=== PATIENT | female | born 1965 | race Caucasian/White ===

== ENCOUNTER 2023-04-11 17:52 | Inpatient (IN) | payer MEDICARE, OTHER, SELFPAY ==
[2023-04-11] VITALS (8 sets, daily range): BP systolic 90–170; BP diastolic 58–97; BMI 35.1; BMI 33.9
--- NOTE | 2023-04-11 14:05 | ED.GENMED ---
History of Present Illness
General
Chief Complaint: Change in Mental Status
Source: other ([facility] RN)
Exam Limitations: clinical condition
Time Seen by Provider: 04/11/23 13:52
Travel History
Have you had any contact with someone who has COVID-19?: Unable to Answer
Do you have any symptoms of coronavirus? Fever > 100 degrees, chills, cough, shortness of breath, sore throat, loss of taste or smell, muscle aches, or headache?: Unable to Answer
History of Present Illness
History of Present Illness:
This is a 58-year-old female with a history of geriatric psych issues. Was at a facility until weeks ago. She has been at her baseline until sometime in the last 24 hours. Staff is unsure whether she was like this this morning or just noted this
afternoon. He said she has had some increased confusion. She is normally is alert will go to the dining room to eat. They are unsure if she is oriented however. But this lethargy and confusion are seen recurrently different than her baseline.
Patient is unable to add history. Her Klonopin has been decreased to eat recently. No new medications per the staff
Past History
Past History
ED Past Medical History: GERD, HTN, Hypercholesterolemia, Hypothyroidism and Psychiatric
Social History
Living: care home
Employment: Not employed
Review of Systems
Review of Systems
Unable to obtain full review of systems at this time due to: due to acuity
All Other Systems: Not applicable
Phy Exam
Physical Exam
Physical Exam:
GENERAL: Alert to first name only in no apparent distress, however lethargic mildly slurred speech.
EYE: Orbits slightly dilated left pupil.
NECK: Supple, no significant adenopathy.
ENT: Pharynx without erythema
CARDIAC: Regular rate and rhythm without any obvious murmurs.
LUNGS: Clear breath sounds,normal
ABDOMEN: Soft, without focal tenderness or distention. Elevated BMI
NEUROLOGICAL: Alert and oriented to first name only, grossly non-focal
SKIN: Warm and dry, ecchymosis below the left knee
MUSCULOSKELETAL: No edema,no deformity.Good color
PSYCH: Flat affect
Course
Orders/Labs/Results
Orders:
Orders
04/11/23 Lunch
NPO
Reason for opting out of Shipboard Intelligence Analyst order writing: Provider Decision
Allow oral meds: No
Allow clear liquids: No
NPO with Ice Chips: No
04/11/23 13:36
EKG [Electrocardiogram (*1)] Urgent
Reason for Study: Fatigue / Weakness
04/11/23 13:37
EKG- Treatment ONCE
04/11/23 13:58
CT Head W/o Iv Contrast Urgent
Comment:
Reason For Exam: Change in mental status
CXR2 [CR Chest - 2 Views ] Urgent
Comment:
Reason For Exam: Change in mental status/hypothermia
Pulse Ox/cont/shift [RESP] Stat
Quantity: 1
04/11/23 13:59
Electrocardiogram (*1) Stat
Reason for Study: Other
Other Reason for Exam: neuro symptoms
EKG- Treatment ONCE
04/11/23 14:02
COVID-19 Antigen Urgent
Source: Nasal Swab
Complete Blood Count/With Diff Urgent
Comprehensive Metabolic Panel Urgent
TSH Reflex To Free T4 Urgent
Urinalysis Reflex To Culture Urgent
Date Specimen was Collected: 04/11/23
Time Specimen was Collected: 13:39
Valproic Acid Level [Depakane] Urgent
Blood Culture Routine
MASHA Source: Blood/Venous
Specimen Description:
Date Specimen was Collected: 04/11/23
Time Specimen was Collected: 13:39
Influenza A+B Rapid Molecular Urgent
MASHA Source: Nasal Swab
Specimen Description:
04/11/23 14:11
Lactic Acid Q4H
Comment: CANCEL 2nd LACTIC ACID IF 1st LACTIC ACID IS LESS THAN 2
04/11/23 17:02
Admit/Transfer Patient As Directed
Co-Sign Provider:
Level of Care: Inpatient admission
Assign to:: Medical/Surgical
Physician / Group: Hospitalist
Diagnosis: change in mental status
Reason for Hospitalization: change in mental status, TME, sepsis
Expected length of stay greater than two midnights?: Yes
ELOS- Estimated Length of Stay in days: 3
I certify the patient meets the requirements for IP care: Yes
Urine Drug Abuse Screen Urgent
04/11/23 17:04
Code Status As Directed
Resuscitation Status: Full Code
04/11/23 17:37
Add On- LAB Stat
Tests Added?: b12, folate
Abnormal Lab Results
04/11/23
14:02
MCV 80.9 L fL
(81.0-99.0)
Absolute Neuts (auto) 6.6 H 10^3/uL
(1.4-6.5)
Absolute Lymphs (auto) 0.9 L 10^3/uL
(1.2-3.4)
Neutrophils % 78.5 H %
(42.2-75.2)
Lymphocytes % 11.2 L %
(20.5-51.1)
Chloride 108 H mmol/L
(98-107)
BUN 22 H mg/dl
(7-17)
04/11/23 14:02
04/11/23 14:02
Vital Signs
Initial and Last Documented VS:
Initial Vital Signs
Temp Pulse Resp BP Pulse Ox
95.6 F L 69 22 136/79 100
04/11/23 13:40 04/11/23 13:40 04/11/23 13:40 04/11/23 13:40 04/11/23 13:40
Last Documented Vital Signs
Temp Pulse Resp BP Pulse Ox
95.6 F L 63 12 146/77 96
04/11/23 13:40 04/11/23 16:30 04/11/23 16:30 04/11/23 16:00 04/11/23 16:30
MDM/Problems Addressed
Differential Diagnosis Includes:
Large differential for mental status change including sepsis, thyroid, electrolyte, medications, central neurologic etc. Workup in progress.
*Radiology
Radiology exam reviewed: preliminary read by ED provider (Negative x-ray) and radiology read reviewed (Negative. CT scan brain with asymmetrical CSF.)
*Pulse Oximetry
Patient hypoxic: no
*EKG
Interpreted by ED Provider?: Yes
Interpretation: normal
Comparison EKG: no comparison EKG present
Heart Rate: 65
Rate: normal
Rhythm: sinus
Sandoval: normal axis
Interval: normal interval
QRS Pattern: normal QRS
Ischemia: no ischemia
*Activities Officer Interpretation
Rate: normal
Interpretation: normal
Heart Rate: 80
Rhythm: sinus
*Critical Care Note
Total Time (30-74mins, 75-104mins- exclusive of procedures): Not Applicable
Data Reviewed
Review of Other/Old Records Reveals: Other (ED records)
Update Note
Update Note:
Mental status changes most likely medication related at this time. No findings to support infectious issue. Doubt central neurologic issue. Warrants admission for further care. Family updated.
ED Attending Note
-
Portions of this chart may have been created with voice recognition software.� Occasional wrong word or��sound alike� substitutions may have occurred due to the inherent limitations of voice recognition software.
Discharge Plan
Departure
Patient Disposition: Admit
Date of Disposition: 04/11/23
Time of Disposition: 16:29
Presentation/result/management discussed w/ accepting MD/DO: Hospitalist
Discharge Problem:
Change in mental status, Suspect medication related
Prescriptions:
No Action
acetaminophen [Tylenol] 325 mg Tablet
650 mg PO Q6HPRN PRN (Reason: MILD PAIN)
trazodone 50 mg Tablet
50 mg PO HS
atorvastatin [Lipitor] 10 mg Tablet
10 mg PO DAILY
sennosides-docusate sodium [Senna Plus] 8.6-50 mg Tablet
2 tab-cap PO BID
clonazepam 1 mg Tablet
0.5 mg PO BID
melatonin 3 mg Tablet
3 mg PO HS
amlodipine [Norvasc] 10 mg Tablet
10 mg PO DAILY
levothyroxine [Synthroid] 50 mcg Tablet
50 mcg PO DAILY
bisacodyl [Dulcolax (bisacodyl)] 10 mg Suppository
10 mg ID DAILYPRN PRN (Reason: IF NO BM AFTR MOM)
pantoprazole 40 mg Tablet,Delayed Release (Dr/Ec)
40 mg PO DAILY
benztropine 1 mg Tablet
1 mg PO BID
Fleet Enema 19-7 gram/118 mL Enema
118 ml ID DAILYPRN PRN (Reason: IF NO BM AFTR DULCOLAX)
gabapentin 300 mg Capsule
300 mg PO TID
folic acid 1 mg Tablet
1 mg PO DAILY
furosemide 20 mg Tablet
20 mg PO DAILYPRN PRN (Reason: edema)
cholecalciferol (vitamin D3) [Vitamin D3] 10 mcg (400 unit) Tablet
10 mcg PO DAILY
diclofenac sodium [Voltaren] 1 % Gel
0 g TOPICAL Q8HPRN PRN (Reason: FRONT AND BACK OF SHOULDERS)
divalproex 250 mg Tablet,Delayed Release (Dr/Ec)
1,250 mg PO HS
magnesium hydroxide [Milk of Magnesia] 400 mg/5 mL Suspension
2,400 mg PO [id number] PRN (Reason: if no bm by 3rd day)
hydrocortisone 1 % Cream
1 applic TOPICAL BID
metoprolol tartrate [Lopressor] 50 mg Tablet
50 mg PO BID
docusate sodium [Colace] 100 mg Capsule
200 mg PO DAILY
losartan 100 mg Tablet
100 mg PO DAILY
risperidone 0.5 mg Tablet
0.5 mg PO HS
cyclobenzaprine [Flexeril] 5 mg Tablet
5 mg PO Q8HPRN PRN (Reason: spasms)
bupropion HCl [Wellbutrin XL] 300 mg Tablet Extended Release 24 Hr
300 mg PO DAILY
Referrals:
NONE,* [Family Provider] -
Interventions
Interventions:
*Risk Screen - Suicide Last Done: 04/11/23 13:47
*General Assessment Last Done: 04/11/23 14:44
*Neglect/Abuse Screening Last Done: 04/11/23 13:47
ED- Fall Risk Assessment Last Done: 04/11/23 13:47
*ED COVID-19 Vaccine History Last Done: 04/11/23 14:48
ED- Neurological Assessment Last Done: 04/11/23 14:43
ED Swallowing Screen Last Done: 04/11/23 14:42
[2023-04-11 14:21] LABS: % Basophils 0.7 % (0-2); % Eosinophils 1.7 % (0-6); % Immature Granulocytes 0.4 % (0-0.5); % Lymphocytes 11.2 % (20.5-51.1); % Monocytes 7.5 % (1.7-9.3); % Neutrophils 78.5 % (42.2-75.2); Absolute Basophils 0.1 10^3/uL (0-0.2); Absolute Eosinophils 0.1 10^3/uL (0-0.7); Absolute Lymphocytes 0.9 10^3/uL (1.2-3.4); Absolute Monocytes 0.6 10^3/uL (0.1-0.6); Absolute Neutrophils 6.6 10^3/uL (1.4-6.5); Hematocrit 41.4 % (37.0-47.0); Hemoglobin 14.2 g/dL (12.0-16.0); Mean Corp Hgb Conc. 34.3 g/dL (33.0-37.0); Mean Corpuscular Hgb 27.7 pg (27.0-31.0); Mean Corpuscular Volume 80.9 fL (81.0-99.0); Mean Platelet Volume 8.9 fL (7.4-10.4); Nucleated Red Blood Cells % 0 %; Platelet Count 171 10^3/uL (130-400); Red Blood Cell Count 5.12 10^6/uL (4.20-5.40); Red Cell Dist. Width 13.8 % (11.5-14.5); White Blood Cell Count 8.4 10^3/uL (4.8-10.8)
[2023-04-11 14:23] LABS: Urine Albumin Trace (Neg - Trace); Urine Bilirubin Negative (Negative); Urine Character Clear (Clear); Urine Color Yellow; Urine Glucose Negative (Negative); Urine Ketone Negative (Negative); Urine Leukocyte Negative (Negative); Urine Nitrite Negative (Negative); Urine Occult Blood Negative (Negative); Urine Specific Gravity 1.015 (<1.030); Urine Urobilinogen Negative (Neg - 1+)
[2023-04-11 14:32] LABS: COVID-19 Antigen Negative (Negative)
[2023-04-11 14:33] LABS: Lactic Acid 1.5 mmol/L (0.7-2.0)
[2023-04-11 14:34] LABS: ALT (SGPT) 11 U/L (0-35); AST (SGOT) 19 U/L (14-36); Albumin 3.9 g/dl (3.5-5.0); Alkaline Phosphatase 85 U/L (38-126); Blood Urea Nitrogen 22 mg/dl (7-17); Calcium 9.5 mg/dl (8.4-10.2); Carbon Dioxide 27 mmol/L (22-30); Chloride 108 mmol/L (98-107); Estimated Creatinine Clearance 71 ml/min; Glucose 98 mg/dl (70-99); Potassium 4.5 mmol/L (3.5-5.1); Sodium 139 mmol/L (135-145); Total Bilirubin 0.6 mg/dl (0.2-1.3); Total Protein 6.8 g/dl (6.3-8.2); eGFR > 60.00
[2023-04-11 14:38] LABS: Depakane 85.8 ug/ml (50.0-120.0)
[2023-04-11 15:14] LABS: TSH Reflex To Free T4 3.14 uIU/ml (0.47-4.68)
--- NOTE | 2023-04-11 17:17 | HPS.HSE ---
Addendum entered and electronically signed by Demario Martinez MD 04/11/23 17:53:
discussed with pt's sister, Elana at bedside H#[phone]
Addendum entered and electronically signed by Demario Martinez MD 04/11/23 17:52:
Pt had been at a senior care, but is currently living at [facility]
Noted change in mental status today. No known trauma
Pt seen independently and agree with HYDRO ELECTRIC STATION OPERATOR note
Neck supple, no nuchal rigidity
Lungs clear
CV reg
Ext no edema
Neuro arousable, impaired communicative ability
Imp: etio of change in mental status unclear.
P:Psych and Neuro consults
hold Psych meds
Original Note:
Family Physician
-
Family Physician: * NONE
Chief Complaint
-
change in mental status
History of Present Illness
58-year-old female with a history of schizophrenia presents to the emergency department today with change in mental status.� She was at a facility until recently.� She had been at her baseline until sometime in the last 24 hours.�She is normally
alert and independent with ADLs.� Sister, Elana says that she is healthy with no other medical or surgical history but yesterday was notified that she is currently in a wheelchair. Elana also states that the patient reportedly fell a week ago but
does not know if she hit her head. She is on no new medications per the staff.
Medical History
Past Medical History
Past Medical History: Reports Psychiatric (schizophrenia)
Past Surgical History: Reports None
Social History
Tobacco: Non-smoker
Personal: Single
Employment: Disabled
Family History
Family History: Not pertinent
Allergies / Home Medications
Allergies reflects when Allergies were last updated in [facility].
Home Medications with original date entered in [facility]
Allergy/Medication List:
Allergies
Allergy/AdvReac Type Severity Reaction Status Date / Time
codeine Allergy Unknown Verified 04/11/23 13:46
erythromycin base Allergy Unknown Verified 04/11/23 13:46
haloperidol [From Haldol] Allergy Unknown Verified 03/03/23 12:48
hydrocodone Allergy Unknown Verified 04/11/23 13:46
Iodinated Contrast Media Allergy Unknown Verified 04/11/23 13:46
iodine Allergy Unknown Verified 04/11/23 13:46
Macrolide Antibiotics Allergy Unknown Verified 04/11/23 13:46
Home Medications
acetaminophen 325 mg tablet (Tylenol) 650 mg PO Q6HPRN PRN MILD PAIN 03/03/23
amlodipine 10 mg tablet (Norvasc) 10 mg PO DAILY 03/03/23
atorvastatin 10 mg tablet (Lipitor) 10 mg PO DAILY 03/03/23
benztropine 1 mg tablet 1 mg PO BID 03/03/23
bisacodyl 10 mg rectal suppository (Dulcolax (bisacodyl)) 10 mg ID DAILYPRN PRN IF NO BM AFTR MOM 03/03/23
cholecalciferol (vitamin D3) 10 mcg (400 unit) tablet (Vitamin D3) 10 mcg PO DAILY 03/03/23
clonazepam 1 mg tablet 0.5 mg PO BID 03/03/23
diclofenac sodium 1 % topical gel 0 g topical Q8HPRN PRN FRONT AND BACK OF SHOULDERS 03/03/23
folic acid 1 mg tablet 1 mg PO DAILY 03/03/23
furosemide 20 mg tablet 20 mg PO DAILYPRN PRN edema 03/03/23
gabapentin 300 mg capsule 300 mg PO TID 03/03/23
levothyroxine 50 mcg tablet (Synthroid) 50 mcg PO DAILY 03/03/23
melatonin 3 mg tablet 3 mg PO HS 03/03/23
pantoprazole 40 mg tablet,delayed release 40 mg PO DAILY 03/03/23
sennosides 8.6 mg-docusate sodium 50 mg tablet (Senna Plus) 2 tab-cap PO BID 03/03/23
sodium phosphates 19 gram-7 gram/118 mL enema (Fleet Enema) 118 ml ID DAILYPRN PRN IF NO BM AFTR DULCOLAX 03/03/23
trazodone 50 mg tablet 50 mg PO HS 03/03/23
bupropion HCl 300 mg 24 hr tablet, extended release (Wellbutrin XL) 300 mg PO DAILY 04/11/23
cyclobenzaprine 5 mg tablet 5 mg PO Q8HPRN PRN spasms 04/11/23
divalproex 250 mg tablet,delayed release 1,250 mg PO HS 04/11/23
docusate sodium 100 mg capsule (Colace) 200 mg PO DAILY 04/11/23
hydrocortisone 1 % topical cream 1 applic topical BID behind right ear 04/11/23
losartan 100 mg tablet 100 mg PO DAILY 04/11/23
magnesium hydroxide 400 mg/5 mL oral suspension (Milk of Magnesia) 2,400 mg PO [id number] PRN if no bm by 3rd day 04/11/23
metoprolol tartrate 50 mg tablet (Lopressor) 50 mg PO BID 04/11/23
risperidone 0.5 mg tablet 0.5 mg PO HS 04/11/23
Review of Systems
-
Unable to obtain full review of systems at this time due to: Patient Non-verbal
Physical Exam
Vital Signs
Vital Signs
Temp Pulse Resp BP Pulse Ox
95.6 F L 63 12 146/77 96
04/11/23 13:40 04/11/23 16:30 04/11/23 16:30 04/11/23 16:00 04/11/23 16:30
Physical Exam
General: Well Developed and Obese
HEENT: NormoCephalic and Other (dry mucous membranes)
Respiratory: Clear
Cardiac: S1/S2 and Regular Rhythm
Breast: Deferred by me
GI: Soft, Non Tender, Non Distended and Normal Bowel Sounds
Rectal: Deferred by Provider
Genito-urinary: Deferred by me
Musculoskeletal: No Clubbing, No Cyanosis and No Edema
Skin: Warm and Dry
Neuro: Other (lethargic)
Hematologic/Lymphatic: No Lymphadenopathy
Laboratory Results
-
04/11/23 14:02
04/11/23 14:02
Laboratory Results
Lactic Acid Cancelled 04/11/23 18:15
Total Bilirubin 0.6 mg/dl (0.2-1.3) 04/11/23 14:02
AST 19 U/L (14-36) 04/11/23 14:02
ALT 11 U/L (0-35) 04/11/23 14:02
Alkaline Phosphatase 85 U/L (38-126) 04/11/23 14:02
Impression/Plan
-
IMPRESSION/PLAN:
Admit to Hospitalist service
#Acute change in mental status
-HCT Impression: Asymmetric prominent CSF fluid along the right frontal, parietal and occipital region laterally, asymmetric from the left. Findings most consistent with asymmetric volume loss, diffuse. No discrete mass identified.
-c/s Neurology
-c/s Psych
-NPO until more alert, S&S c/s
-IVF
-Urine drug screen pending
-Initial UA negative but with change in mental status and hypothermia will recheck UA in am
-Check B12, Folate
#Schizophrenia
-c/s Psych as above
-Hold all meds until mental status improves
Full Code
DVT Prophylaxis: Lovenox
[2023-04-11 18:38] LABS: Amphetamines Negative (Negative); Barbiturates Negative (Negative); Benzodiazepines Negative (Negative); Buprenorphine Negative (Negative); Cocaine Negative (Negative); Marijuana Negative (Negative); Methadone Negative (Negative); Methamphetamines Negative (Negative); Opiates Negative (Negative); Phencyclidine Negative (Negative); Tricyclic Antidepressants Negative (Negative)
[2023-04-11 20:03] LABS: Folate > 20.0 ng/ml (2.76-20); Vitamin B12 753 pg/ml (239-931)
[2023-04-11] MEDS: NSS 1000 IV (20:17)
[2023-04-11] MEDS: LOVENOX 40 MG SC (20:17)
[2023-04-11] MEDS: DESENEX/MITRAZOL/ZEASORB 1 APPLIC TOPICAL (20:23)
[2023-04-12 05:58] LABS: Urine Albumin Trace (Neg - Trace); Urine Bilirubin 1+ (Negative); Urine Character Clear (Clear); Urine Color Yellow; Urine Glucose Negative (Negative); Urine Ketone 1+ (Negative); Urine Leukocyte Trace (Negative); Urine Nitrite Negative (Negative); Urine Occult Blood Negative (Negative); Urine Urobilinogen Negative (Neg - 1+)
[2023-04-12 06:13] LABS: Urine Red Blood Cell None Seen /HPF (0-2)
[2023-04-12 07:43] VITALS: BP 177/98
[2023-04-12] MEDS: DESENEX/MITRAZOL/ZEASORB 1 APPLIC TOPICAL ×2 (07:53→21:55)
[2023-04-12] MEDS: NSS 1000 IV ×2 (08:03→21:58)
--- NOTE | 2023-04-12 09:33 | PTOTSP ---
SPEECH THERAPY SWALLOW EVALUATION:
Clinical signs of oropharyngeal dysphagia, likely acute related to AMS. Patient at high risk for aspiration and related complications given confusion, impusivity, and lethargy. CXR concerning for 'early pneumonic process' in Right lung base. Patient
appears unsafe for oral diet at this time. Recommend NPO except for necessary medications crushed in puree with 1:1 assist only when awake and alert; temporary alternate means for all other nutrition/hydration. Recommend Speech therapy to follow,
re-assess patient in 24 hours, and provide diagnostic treatment as appropriate. Discussed with patient, RN, and MD. Sign with recommendations posted in patient room.
RECOMMEND:
1) NPO except for necessary medications crushed in puree
2) temporary alternate means for all other nutrition/hydration
3) Speech therapy to follow, re-assess patient in 24 hours, and provide diagnostic treatment as appropriate
--- NOTE | 2023-04-12 09:46 | CON.NEURO4 ---
Consultation - Neurology 4
-
CONSULTING PHYSICIAN: Torrey
REFERRING PHYSICIAN: hospitalist service
DICTATED BY:Torrey
DATE/TIME OF REQUEST: 04/11/23 in evening
DATE/TIME OF CONSULTATION: 04/12/23 at 9am
Reason for Consultation:altered mental status
History of Present Illness:
58-year-old female with past medical history of hypertension, hypercholesterolemia, hypothyroidism, GERD and schizophrenia brought in from [facility] with altered mental status of unclear etiology. She had been at her baseline until sometime in the
previous 24 hours when she came in just prior to 2 PM yesterday. She has had increased confusion. Per records, the details of her baseline are unclear beyond that she is normally alert enough to go to the dining room to eat. Unclear if this
started yesterday morning or afternoon. No clear convulsive seizure activity noted. Reportedly her clonazepam had been decreased recently. No other new meds per [facility] staff per records.
Attempted to contact [facility] twice with no answer. Attempted to contact the patient's sister Lexis who is listed as her primary contact with no answer. Her voicemail box is full. I diid discuss with her sister Elana. ([phone])
She reports that Radha is usually oriented x 3 at baseline, 'very intelligent, has a good memory and likes to read.' She last saw her in person around [place] time and she was at her baseline and able to ambulate independently. She previously
lived in a [facility] on [facility] [address] [facility] [address] in [place]. Elana thinks that over the past several weeks she has been seen in different ERs including [facility] in [place], [place], a hospital in [place] and one in [place]. She
thinks that her meds have been adjusted at these different hospitals but does not know any further details. She did not know if her sister has an outpatient psychiatrist that she regularly follows with. She says that she fell on April 03 or .
Unclear if she had head trauma. She says that when her family calls [facility] they have difficulty getting through and she thinks that '[facility] took the patient's cell phone so they have been unable to call her. ' She has not spoken to her
since her fall.
Past Medical History
Taken from notes as patient could not provide own history:
'Past Medical History: schizophrenia, �GERD, HTN, Hypercholesterolemia, Hypothyroidism�
Past Surgical History: None
Social History
Tobacco: Non-smoker
Personal: Single
Employment: Disabled'
Family History
Family History:reviewed, noncontributory
Allergies
codeine Allergy (Verified 04/11/23 13:46)
Unknown
erythromycin base Allergy (Verified 04/11/23 13:46)
Unknown
haloperidol [From Haldol] Allergy (Verified 03/03/23 12:48)
Unknown
hydrocodone Allergy (Verified 04/11/23 13:46)
Unknown
Iodinated Contrast Media Allergy (Verified 04/11/23 13:46)
Unknown
iodine Allergy (Verified 04/11/23 13:46)
Unknown
Macrolide Antibiotics Allergy (Verified 04/11/23 13:46)
Unknown
Home Medications
Medication Instructions Recorded
acetaminophen 325 mg tablet 650 mg PO Q6HPRN PRN MILD PAIN 03/03/23
(Tylenol)
amlodipine 10 mg tablet (Norvasc) 10 mg PO DAILY Blood Pressure 03/03/23
atorvastatin 10 mg tablet (Lipitor) 10 mg PO DAILY High Cholesterol 03/03/23
benztropine 1 mg tablet 1 mg PO BID Neurological Condition 03/03/23
bisacodyl 10 mg rectal suppository 10 mg VT DAILYPRN PRN IF NO BM 03/03/23
(Dulcolax (bisacodyl)) AFTR MOM
cholecalciferol (vitamin D3) 10 10 mcg PO DAILY Supplement 03/03/23
mcg (400 unit) tablet (Vitamin D3)
clonazepam 1 mg tablet 0.5 mg PO BID Mental Health/Anxiety 03/03/23
diclofenac sodium 1 % topical gel 0 g topical Q8HPRN PRN FRONT AND 03/03/23
BACK OF SHOULDERS
folic acid 1 mg tablet 1 mg PO DAILY Supplement 03/03/23
furosemide 20 mg tablet 20 mg PO DAILYPRN PRN edema 03/03/23
gabapentin 300 mg capsule 300 mg PO TID Neurological 03/03/23
Condition
levothyroxine 50 mcg tablet 50 mcg PO DAILY@07 Thyroid 03/03/23
(Synthroid)
melatonin 3 mg tablet 3 mg PO HS Sleep 03/03/23
pantoprazole 40 mg tablet,delayed 40 mg PO DAILY Gastrointestinal 03/03/23
release Issue
sennosides 8.6 mg-docusate sodium 2 tab-cap PO BID Constipation 03/03/23
50 mg tablet (Senna Plus)
sodium phosphates 19 gram-7 118 ml VT DAILYPRN PRN IF NO BM 03/03/23
gram/118 mL enema (Fleet Enema) AFTR DULCOLAX
trazodone 50 mg tablet 50 mg PO HS Sleep 03/03/23
bupropion HCl 300 mg 24 hr tablet, 300 mg PO DAILY Depression 04/11/23
extended release (Wellbutrin XL)
cyclobenzaprine 5 mg tablet 5 mg PO Q8HPRN PRN spasms 04/11/23
divalproex 250 mg tablet,delayed 1,250 mg PO HS Neurological 04/11/23
release Condition
docusate sodium 100 mg capsule 200 mg PO DAILY Constipation 04/11/23
(Colace)
hydrocortisone 1 % topical cream 1 applic topical BID behind right 04/11/23
ear
losartan 100 mg tablet 100 mg PO DAILY Blood Clot 04/11/23
Prevention/Tx
magnesium hydroxide 400 mg/5 mL 2,400 mg PO [id number] PRN if no bm 04/11/23
oral suspension (Milk of Magnesia) by 3rd day
metoprolol tartrate 50 mg tablet 50 mg PO BID Blood Pressure 04/11/23
(Lopressor)
risperidone 0.5 mg tablet 0.5 mg PO HS Mental Health/Anxiety 04/11/23
Review of Symptoms:
Per the HPI. I am unable to obtain a complete review of systems�because of patient's inability to provide history.
Vital Signs
Temp Pulse Resp BP Pulse Ox
97.4 F 91 16 177/98 96
04/12/23 07:43 04/12/23 07:43 04/12/23 07:43 04/12/23 07:43 04/12/23 07:43
Lab Results
04/11/23 14:02
04/11/23 14:02
Sodium 139 mmol/L (135-145) 04/11/23 14:02
Potassium 4.5 mmol/L (3.5-5.1) 04/11/23 14:02
BUN 22 mg/dl (7-17) H 04/11/23 14:02
Glucose 98 mg/dl (70-99) 04/11/23 14:02
Calcium 9.5 mg/dl (8.4-10.2) 04/11/23 14:02
Vitamin B12 Cancelled 04/11/23 18:02
Ur Buprenorphine Cancelled 04/11/23 17:02
Physical Exam:
The patient is afebrile, heart sounds S1 and S2 are regular and chest is clear to auscultation bilaterally.
Neurologic Examination:
The patient is obtunded but did wake up enough to follow basic commands intermittently. She stated that 'she's okay' and repeated that when asked where she is that is 'is in maternity.' Answered no other questions. No clear aphasia. On cranial
nerve assessment, pupils are 3 mm bilateral, round and reactive to light and accommodation. Extraocular muscles seem to be intact. No clear visual field cut although exam could not be detailed given her mental status. No clear facial asymmetry.
BLE at least 4/5--did not follow command for BUE strength testing but exhibited antigravity spontaneous movement. Deep tendon reflexes are 2+ bilateral upper and lower extremities and Babinski is absent bilaterally. Did not follow commands for
coordination testing. +involuntary polymorphic, irregular movements of lower face/lips.
Neuro Imaging:
HCT:
1. � There is no acute intracranial process.
2. � Asymmetric prominent CSF fluid along the right frontal, parietal and occipital region laterally, asymmetric from the left. Findings most consistent with asymmetric volume loss, diffuse. No discrete mass identified.
3. � No hemorrhage.
Impression:
RADHA ANDRADE is a 58 year old F who has presented to the hospital with obtundation of unclear etiology. She has a history of schizophrenia; her baseline mental status is unclear. She had a fall one week ago--unclear if any head trauma. HCT
negative for bleed. On no new meds per staff at [facility] per notes. No clear history of stroke or seizure. HCT shows asymmetric volume loss. UDS negative. VPA level therapeutic at 85. ER notes report that clonazepam dosing was recently
decreased. Sister Elana reports she has had several recent ER visits at various hospitals and thinks meds have been adjusted.
Differentials for the patient's presentation include:
1. nonconvulsive seizure induced by clonazepam decrease
2. medication side effect (although per reports no recent med changes per [facility], sister Elana reports she has had several recent ER visits at various hospitals and thinks meds have been adjusted)
3. toxic-metabolic encephalopathy of unclear etiology--? infection, initially hypothermic but no leukocytosis, has not been febrile since admission; has had labile BP ranging from 90/68 to 177/98
Recommendations:
1. stat EEG
2. MRI brain w/wo contrast--can only be done with sedation given current inability to cooperate/remain still--not done on weekends; will try to get more history of sister Lexis to see if this is truly warranted
3. attempted to call [facility] to clarify her baseline/history and could not get through
4. called patient's primary contact, her sister Lexis; no answer, voicemail box was full so could not leave a message; did discuss with patient's sister Elana; asked Elana to have her sister Lexis call me back to discuss
5. repeat UA
6. need PCP/outpatient psych records/records from other hospitals where she has recently been seen
Discussed patient care with: patient, Dr. Martinez, nursing, MRI techs, nursing hand silvering supervisor, patient's sister Elana
--- NOTE | 2023-04-12 11:38 | W.PN.HOSP.TC ---
Today's Communication/Plan
-
reviewed with neurology
consideration for further imaging vs holding medication and reevaluate clinically, will be deferred to neuro
Assessment / Plan
Assessment / Plan
#Acute change in mental status
Reviewed extensively with Dr. Hirsch. Apparently pt has been in multiple institutions and now residing at [facility]. Family does not believe her current mental status is her normal status. They are concerned about excessive medication.
Medication currently on hold and she has certainly woken up, but again, as per nursing, can be very variable.
No evidence of meningitis on examination.
Dr. Hirsch is considering a MRI, but pt would have to be sedated to have that done. Also considering an EEG
-HCT Impression: Asymmetric prominent CSF fluid along the right frontal, parietal and occipital region laterally, asymmetric from the left. Findings most consistent with asymmetric volume loss, diffuse. No discrete mass identified.
-c/s Neurology
-c/s Psych
-NPO until more alert, S&S c/s
-IVF
-Urine drug screen pending
-Initial UA negative, repeat also neg
- B12 753, Folate >20
fungal looking rash behind both ears
will tx with Lotrimin
#Schizophrenia
-c/s Psych as above
-Hold all meds until mental status improves
Full Code
DVT Prophylaxis: Lovenox
Anticipated Discharge: > 48 hours
Subjective/Interval History
-
Date of Service: April 12, 2023
Much more awake today when seen by me, but as per nursing, can be very variable
Objective Data
-
Vital Signs:
Vital Signs
Temp Pulse Resp BP Pulse Ox
97.4 F 91 16 177/98 96
04/12/23 07:43 04/12/23 07:43 04/12/23 07:43 04/12/23 07:43 04/12/23 07:43
I&O
04/11/23 04/12/23 04/13/23
06:59 06:59 06:59
Output Total 1380 / 1380
Balance -1380 / -1380
Review of Systems
-
Constitutional: Denies Fever (hypothermia resolved today)
Respiratory: Reports No Symptoms
Cardiac: Reports No Symptoms
Abdomen/GI: Reports No Symptoms
Neuro: Denies Seizures
Physical Exam
-
General: Well Developed, Well Nourished, No Apparent Distress, Appears Chronically Ill and Obese
HEENT: Normocephalic, Atraumatic, Moist Mucous Membranes and Other (no nuchal rigidity)
Respiratory: Clear to Auscultation; Negative Wheezes, Rales or Rhonchi
Cardiac: Regular Rhythm and S1/S2
GI: Soft, Nontender and Nondistended
Musculoskeletal: No Clubbing, No Cyanosis and No Edema
Skin: Rash (fungal rash behind both ears)
Neuro: Awake (currently, but very variable)
Psych: Confused
[2023-04-12] MEDS: LOTRIMIN 1% CREAM 1 APPLIC TOPICAL ×2 (12:10→21:57)
--- NOTE | 2023-04-12 13:19 | EEG.RPT ---
Electroencephalogram Report
Recording
Date of EE04/12/23
Type of EEG: Routine
Length of EEG recordin mins
Done with Video Recording: Yes
Patient Status: Inpatient
Recording Conditions: Confused
Hyperventilation Performed: No
Photic Stimulation Performed: Yes
Report
METHODS
A 21 channel digitized electroencephalogram was performed at [facility]. The 10/20 international system of electrode placement was used. In addition to EEG, the patient was monitored for EKG. The duration of the recording was 25 minutes.
BACKGROUND
The background was diffusely slow, consisting of 5-6Hz frequencies. The background was at times obscured by severe movement and muscle artifact. Chewing movements had no clear epileptiform correlate.
HYPERVENTILATION
Hyperventilation was not performed.
PHOTIC STIMULATION
Photic stimulation using a step-ariza increase in photic frequency varying from 1-31 Hertz resulted in no driving responses but no appearance of abnormal activity.
ABNORMAL EEG ACTIVITY
This EEG is abnormal due to the presence of diffuse slowing of the background consisting of 5-6Hz frequencies. The background was at times obscured by severe movement and muscle artifact. Chewing movements had no clear epileptiform correlate.
CLINICAL EVENTS
Chewing movements had no clear epileptiform correlate.
INTERPRETATION AND CLINICAL CORRELATION
This EEG is abnormal due to the presence of diffuse slowing of the background consisting of theta-range frequencies. The background was at times obscured by severe movement and muscle artifact during which time underlying epileptiform abnormalities
cannot be definitively ruled out. Chewing movements had no clear epileptiform correlate. Overall, the study is consistent with mild to moderate diffuse cerebral dysfunction, nonspecific in etiology.
[2023-04-12 16:05] VITALS: BP 174/84
[2023-04-12 17:20] VITALS: BP 112/67
[2023-04-12] MEDS: LOVENOX 40 MG SC (17:35)
[2023-04-12 17:43] LABS: Ammonia < 9 umol/L (9-30)
[2023-04-12 17:50] LABS: Creatine Phosphokinase 25 U/L (30-135)
--- NOTE | 2023-04-12 18:33 | CON.MD ---
Consultation - Medical
-
58 yo F w/ PMH of schizophrenia presenting with change in mentation. As per family, she is normally able to converse appropriately & care for her basic ADLs , however is now confused and disoriented. Sister reportedly believes that pt fell about a
week ago but is not sure if she hit her head or not. On admission psychiatric medications were stopped due to concern they may be contributing to this change, psychiatry consulted for management of medication as pt has been intermittently quite
excitable & difficult to redirect.
Pt seen & examined at bedside, is unable to participate in meaningful interview � answers are nonsensical with significant word salad at times. Observed to be talking to self much of the time, or talking to someone off to the side (where no one was
standing). Notable for TD, specifically lip smacking and pill rolling. Difficult to assess for rigidity due to resistance to exam/interview as I don�t believe she understood who I was or why I was there, however VS stable.
Pt with long hx of schizophrenia. Psychotropics on admission as follows:
Clonazepam 0.5mg BID
Gabapentin 300mg TID
Melatonin 3mg HS
Trazodone 50mg HS
Bupropion HCL 300mg daily
Depakote DR 1250mg HS
Risperidone 0.5mg HS
CT head shows asymmetric volume loss, diffuse with no evidence of mass or acute injury, being followed by neurology for further evaluation.
Schizophrenia
MSE: poor eye contact, speech is garbled. Mood unable to assess as not answering meaningfully, affect labile. Thought content positive for AH, possibly VH & delusions but unable to confirm. Thought process loose/disjointed. Memory not formally
tested. Not oriented. Poor insight/judgement.
1.������ Resume risperidone 0.5mg HS + 0.25mg prn acute agitation as this may increase with Depakote being stopped. Low dose of risperidone, so I�m not sure how well it truly managed psychotic sxs, however current presentation is likely more so
delirium than her baseline psychosis. I do doubt that this is being caused by the psychiatric medications (aside from clonazepam perhaps contributing, but still not likely the sole cause)
2.������ Resume trazodone 50mg HS so as to maintain sleep
3.������ Ordered VPA level, would want to ensure not supratherapeutic and contributing to presentation. If appropriate level would likely consider restarting, though perhaps at a lower dose until cause of current presentation is determined
4.������ Would keep Wellbutrin on hold for now, as may be too activating right now
5.������ Would avoid restarting clonazepam if at all possible due to risk of falls, confusion and earlier/worsened dementia and associated sxs
6.������ Defer gabapentin for now as I�m unclear as to the reason it�s there � if for pain, I doubt that 300mg would be of much benefit regardless as generally higher doses are needed for any significant pain benefit
[2023-04-12 21:00] VITALS: BP 181/98
[2023-04-12] MEDS: DESYREL PO (21:16)
[2023-04-12] MEDS: RISPERDAL M-TAB (ORALLY DISINTEGRATING) 0.5 MG PO (21:57)
[2023-04-12 23:20] VITALS: BP 175/94
--- NOTE | 2023-04-13 02:32 | W.PN.UPDATE ---
Update Note
Progress Note Update
At 2100 RN notified this CUE WORKER, that another RN heard bed alarm and noticed patient positioned on the left knee on the floor while trying to get up with Right leg holding the side rails. Denies if patient hit her head, Patient is confused baseline this
admission, answers questions selectively. Bruises noted on left knee, otherwise no other wounds or scrapes noted, stable VS. Med sitter in room.
--- NOTE | 2023-04-13 03:39 | PTCARENOTE ---
@2020; Bed alarm ringing.[facility]rentiss staff member calling for help.Found pt facing the bed,kneeling on left knee,standing on right foot while holding on to side rail with both hands.Pt was assisted to sitting position on floor by staff.Pt is confused
,disoriented x3 and unable to verbalize what happen. Pt was lifted up into bed by staff and security.Bruise,yellow/blue noted below left knee.Pt did not complain of pain.MARCUS Fraga notified and into see pt.Vital signs done.Med sitter placed in
room along with bed alarm for pt safety.Superviser notified by charge nurse.
[2023-04-13] MEDS: RISPERDAL M-TAB (ORALLY DISINTEGRATING) 0.25 MG PO ×2 (04:19→17:41)
[2023-04-13 07:00] VITALS: BP 151/94
[2023-04-13 09:21] LABS: Depakane 16.5 ug/ml (50.0-120.0)
[2023-04-13] MEDS: DESENEX/MITRAZOL/ZEASORB 1 APPLIC TOPICAL ×2 (11:42→20:07)
[2023-04-13] MEDS: LOTRIMIN 1% CREAM 1 APPLIC TOPICAL ×2 (11:43→20:07)
--- NOTE | 2023-04-13 12:16 | PTOTSP ---
SPEECH THERAPY SWALLOW FOLLOW UP:
Patient continues to present with clinical signs of oropharyngeal dysphagia. Patient remains at high risk for aspiration given significant confusion and waxing and waning lethargy. Recommend CAUTIOUS initiation of oral diet of IDDSI Levle 4 Puree
and thin liquids with strict aspiration precautions in place: 1:1 assistance/100% supervision, NO STRAW, small single sips/bites, slow rate of intake, only feed when awake/alert, upright positioning. Discontinue oral diet should patient demonstrate
signs of aspiration or a decline in mental status or respiratory status; LOW threshold to make NPO. Continue medications crushed in puree. Speech therapy to follow, re-assess patient in 24 hours, monitor CXR and labs, assess diet tolerance and
modify as appropriate, and provide continued diagnostic treatment as appropriate.
RECOMMEND:
1) CAUTIOUS initiation of oral diet of IDDSI Levle 4 Puree and thin liquids
2) strict aspiration precautions in place: 1:1 assistance/100% supervision, NO STRAW, small single sips/bites, slow rate of intake, only feed when awake/alert, upright postioning
3) Discontinue oral diet should patient demonstrate signs of aspiration or a decline in mental status or respiratory status; LOW threshold to make NPO
4) medications crushed in puree
5) Speech therapy to follow, re-assess patient in 24 hours, monitor CXR and labs, assess diet tolerance and modify as appropriate, and provide continued diagnostic treatment as appropriate
--- NOTE | 2023-04-13 12:52 | W.PN.HOSP.TC ---
Today's Communication/Plan
-
PT/OT
follow psych recs on med regimen
obtain records as able
Assessment / Plan
Assessment / Plan
Assessment:
Acute change in mental status
TME of unclear etiology vs psychosis from schizophrenia
- EEG unremarkable
- for MRI brain if able to tolerate
- no evidence of new meds or infection, no other obvious medical cause to explain
- hold Klonopin
- Neurology following.
- Psych following. Resumed patient back on Risperdal, Trazodone. VPA level is 16.5 (previously 80), consider resumption but defer to psych. Wellbutrin/Benztropine on hold. Attempt to obtain records from recent intake at [facility]
center.
- continue 1:1/sitter
Fungal looking rash behind both ears
- continue Lotrimin
Essential HTN
- continue Norvasc/Losartan/BB
Hypothyroidism
- continue Levothyroxine
DVT ppx: Lovenox
Code: Full
Anticipated Discharge: > 48 hours
Subjective/Interval History
-
Date of Service: April 13, 2023
more calm in later morning per nursing, no complaints
Objective Data
-
Vital Signs:
Vital Signs
Temp Pulse Resp BP Pulse Ox
97.5 F 96 18 151/94 97
04/13/23 07:00 04/13/23 07:00 04/13/23 07:00 04/13/23 07:00 04/13/23 07:00
I&O
04/12/23 04/13/23 04/14/23
06:59 06:59 06:59
Intake Total 960 / 960
Output Total 1380 / 1380 1175 / 1175
Balance -1380 / -1380 -215 / -215
Physical Exam
-
General: No Apparent Distress
HEENT: Normocephalic and Atraumatic
Respiratory: Negative Wheezes
Cardiac: Regular Rhythm and S1/S2
GI: Soft
Genito-urinary: No Costovertebral Tender
Musculoskeletal: No Edema
Neuro: AO x 3
Psych: Calm
Data Reviewed
-
Total Time Spent with Patient (in minutes): 45
Labs: Labs Reviewed by me
--- NOTE | 2023-04-13 14:22 | PTCARENOTE ---
Patient more alert, follows commands, answers questions appropriately. Patient ambulated to bathroom with assist x1. Patient was able to brush her teeth and wash herself with assistance. Patient sitting in chair with alarm, call burciaga in reach.
--- NOTE | 2023-04-13 14:38 | W.PN.UPDATE ---
Update Note
Progress Note Update
Pt seen, chart reviewed. Pt resting in bed, disheveled. Pt alert, partially cooperative, with limited answers, poor historian. After repeated questions, pt states Depakote was started for 'mood.' Pt mildly intermittently restless, no agitation
or aggression. Pt seems internally preoccupied, but shows no overt delusions or hallucinations. VPA level was 85.8 on 04/11, 16.5 yesterday 04/12.
Imp: Schizophrenia, by history.
change in mental status with lethargy, appears to be improving
Rec: Agree with resumption of Risperidone and Trazodone.
Will also resume Depakote at lower dose and change to ER form; will need repeat level after a few days
Will follow
[2023-04-13 15:00] VITALS: BP 171/100
--- NOTE | 2023-04-13 15:57 | W.PN.NEURO.1 ---
Today's Communication / Plan
-
.
Subjective/Objective
Subjective Data
Date of Service: April 13, 2023
24-hour events: Hypertensive up to 181/98, afebrile.
Labs: normal ammonia, CPK
CT head-right hemiatrophy
[facility] EEG(04/12/2023)-gen slowing, no epileptiform abnormalities
ROS: Unable due to encephalopathy
General: Intermittently agitated
Cardio: Regular rate and rhythm without murmur. Extremities are without cyanosis or edema.
Neuro:
Mental Status: Alert, attends to examiner, follows simple requests intermittently. Poor attention. Nonfluent. No hemineglect
Cranial Nerves: Bilateral exodeviation in primary gaze with horizontal extraocular movement intact. No clear visual field deficits of facial weakness. Hearing is preserved. Edentulous dysarthria.
Motor: All limbs antigravity spontaneously purposefully
Reflexes: Limited exam due to cooperation
Sensory: Unable due to poor attention
Coordination: Head, aminta-mandibular dyskinesia
Gait: deferred
Assessment and Plan:
I. Multifactorial encephalopathy
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
III. Tardive dyskinesia
-BP control
-Avoid dopamine blocking agents,
-consider starting valbenazine, deutetrabenazine, or tetrabenazine if Clonazepam is not beneficial for TD symptoms management
-will contact patient's family to obtain patient's cognitive baseline
I reviewed all radiology and labs along with past medical records pertinent to current medical problems.
Thank you for allowing us to participate in the care of this patient. We will continue to follow. Please do not hesitate to contact us with any questions or concerns.
Objective Data
Vital Signs
Temp Pulse Resp BP Pulse Ox
36.6 C 113 18 171/100 97
04/13/23 15:00 04/13/23 15:00 04/13/23 15:00 04/13/23 15:00 04/13/23 15:00
Lab Results
04/11/23 14:02
04/11/23 14:02
Sodium 139 mmol/L (135-145) 04/11/23 14:02
Potassium 4.5 mmol/L (3.5-5.1) 04/11/23 14:02
BUN 22 mg/dl (7-17) H 04/11/23 14:02
Glucose 98 mg/dl (70-99) 04/11/23 14:02
Calcium 9.5 mg/dl (8.4-10.2) 04/11/23 14:02
Vitamin B12 Cancelled 04/11/23 18:02
Ur Buprenorphine Cancelled 04/11/23 17:02
Patient Allergies
codeine Allergy (Verified 04/11/23 13:46)
Unknown
erythromycin base Allergy (Verified 04/11/23 13:46)
Unknown
haloperidol [From Haldol] Allergy (Verified 03/03/23 12:48)
Unknown
hydrocodone Allergy (Verified 04/11/23 13:46)
Unknown
Iodinated Contrast Media Allergy (Verified 04/11/23 13:46)
Unknown
iodine Allergy (Verified 04/11/23 13:46)
Unknown
Macrolide Antibiotics Allergy (Verified 04/11/23 13:46)
Unknown
Modified [place] Score (MRS)
-
MRS Score:
[2023-04-13] MEDS: LOVENOX 40 MG SC (16:48)
[2023-04-13] MEDS: DEPAKOTE ER (24 HR RELEASE) 1000 MG PO (21:14)
[2023-04-13] MEDS: DESYREL 50 MG PO (21:14)
[2023-04-13] MEDS: RISPERDAL M-TAB (ORALLY DISINTEGRATING) 0.5 MG PO (21:20)
[2023-04-13 23:19] VITALS: BP 167/95
--- NOTE | 2023-04-14 | PTCARENOTE ---
BP- 190/98, HR- 102. Asymptomatic. MARCUS Arevalo updated. See MAR for new orders
[2023-04-14] MEDS: LOPRESSOR 50 MG PO ×3 (00:17→22:55)
[2023-04-14 02:06] VITALS: BP 160/70
[2023-04-14] MEDS: RISPERDAL M-TAB (ORALLY DISINTEGRATING) 0.25 MG PO (04:55)
[2023-04-14 06:39] LABS: % Basophils 0.9 % (0-2); % Eosinophils 2.3 % (0-6); % Immature Granulocytes 0.2 % (0-0.5); % Lymphocytes 17.6 % (20.5-51.1); % Monocytes 14.1 % (1.7-9.3); % Neutrophils 64.9 % (42.2-75.2); Absolute Basophils 0.1 10^3/uL (0-0.2); Absolute Eosinophils 0.2 10^3/uL (0-0.7); Absolute Lymphocytes 1.2 10^3/uL (1.2-3.4); Absolute Monocytes 0.9 10^3/uL (0.1-0.6); Absolute Neutrophils 4.3 10^3/uL (1.4-6.5); Hemoglobin 12.1 g/dL (12.0-16.0); Mean Corp Hgb Conc. 33.6 g/dL (33.0-37.0); Mean Corpuscular Hgb 27.4 pg (27.0-31.0); Mean Corpuscular Volume 81.4 fL (81.0-99.0); Mean Platelet Volume 9.5 fL (7.4-10.4); Nucleated Red Blood Cells % 0 %; Platelet Count 141 10^3/uL (130-400); Red Blood Cell Count 4.42 10^6/uL (4.20-5.40); Red Cell Dist. Width 13.8 % (11.5-14.5); White Blood Cell Count 6.7 10^3/uL (4.8-10.8)
[2023-04-14 07:00] VITALS: BP 168/83
[2023-04-14 07:17] LABS: Blood Urea Nitrogen 14 mg/dl (7-17); Calcium 9.2 mg/dl (8.4-10.2); Carbon Dioxide 22 mmol/L (22-30); Chloride 108 mmol/L (98-107); Estimated Creatinine Clearance 87 ml/min; Glucose 100 mg/dl (70-99); Potassium 3.4 mmol/L (3.5-5.1); Sodium 139 mmol/L (135-145); eGFR > 60.00
--- NOTE | 2023-04-14 08:38 | W.PN.NEURO.1 ---
Today's Communication / Plan
-
.
Neuro Assessment/Plan
Assessment
HERBERT ANDRADE is a 58 year old F who has presented to the hospital with obtundation of unclear etiology.� She has a history of schizophrenia; her baseline mental status is unclear. She had a fall one week ago--unclear if any head trauma. HCT
negative for bleed.� On no new meds per staff at [facility] per notes.� No clear history of stroke or seizure.� HCT shows asymmetric volume loss.� UDS negative.� VPA level therapeutic at 85. ER notes report that clonazepam dosing was recently
decreased.� Sister Elana reports she has had several recent ER visits at various hospitals and thinks meds have been adjusted.
Spoke with [facility] staff today (04/14/23). When patient initially moved into [facility] she had agitated behavior, but this subsided and she was typically oriented x3, pleasant, and conversant. She ambulates independently but is an assist x1 with
self care, does not keep up with personal needs unless prompted/assisted. Since coming back from recent psych facility stay, they report she was acting very detached and was minimally conversant which is not like her, followed by her increased
confusion/agitation on 04/11/23.
Labs: normal ammonia, CPK
CT head-right hemiatrophy
Routine EEG(04/12/2023)-gen slowing, no epileptiform abnormalities
I.� Multifactorial encephalopathy
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
III.� Tardive dyskinesia
Plan
-Goal normotension.
-Avoid dopamine blocking agents.
-Consider starting�valbenazine, deutetrabenazine, or tetrabenazine if Clonazepam is not beneficial for TD symptoms management
-Patient unlikely to tolerate MRI brain imaging due to agitation.
-PT/OT/ST evaluations
-DVT prophylaxis
Subjective/Objective
Subjective Data
Date of Service: April 14, 2023
Patient hypertensive overnight 190/98. KAREN ROS due to encephalopathy. Follows some commands. Aware that it is snowing outside today, thinks she is at home but keeps scanning the room and saying things seem 'scary.'
Objective Data
Vital Signs
Temp Pulse Resp BP Pulse Ox
98.4 F 77 18 168/83 97
04/14/23 07:00 04/14/23 07:00 04/14/23 07:00 04/14/23 07:00 04/14/23 07:00
Lab Results
04/14/23 06:17
04/14/23 06:17
Sodium 139 mmol/L (135-145) 04/14/23 06:17
Potassium 3.4 mmol/L (3.5-5.1) L 04/14/23 06:17
BUN 14 mg/dl (7-17) 04/14/23 06:17
Glucose 100 mg/dl (70-99) H 04/14/23 06:17
Calcium 9.2 mg/dl (8.4-10.2) 04/14/23 06:17
Vitamin B12 Cancelled 04/11/23 18:02
Ur Buprenorphine Cancelled 04/11/23 17:02
Patient Allergies
codeine Allergy (Verified 04/11/23 13:46)
Unknown
erythromycin base Allergy (Verified 04/11/23 13:46)
Unknown
haloperidol [From Haldol] Allergy (Verified 03/03/23 12:48)
Unknown
hydrocodone Allergy (Verified 04/11/23 13:46)
Unknown
Iodinated Contrast Media Allergy (Verified 04/11/23 13:46)
Unknown
iodine Allergy (Verified 04/11/23 13:46)
Unknown
Macrolide Antibiotics Allergy (Verified 04/11/23 13:46)
Unknown
Review of Systems
-
Unable to obtain full review of systems at this time due to: Other (encephalopathy)
Physical Exam
-
General: No Apparent Distress
Eyes: No Ptosis and Other (left pupil 3 BR, right pupil 2 BR)
HEENT: Normocephalic and Atraumatic
Neck: Full Range of Motion
Respiratory: No Dyspnea
GI: Non-distended
Extremities: No Clubbing, No Cyanosis and No Edema
Psych: Confused
Extended Neurological Exam
Mood & Affect: Mood Unremarkable and Affect Unremarkable
Attention Span & Concentration: Awake, Alert, Interactive (very distractible) and Unable to Perform 2 Step Request
Memory: Reduced (Oriented to name only)
Tremor: Hand Tremor Absent; Negative Head Tremor Absent (+aminta-mandibular dyskinesia)
Speech: Quality Unremarkable, Quantity Unremarkable, Rate of Production Unremarkable and Other (unable to answer most questions)
Cranial Nerve II: Left Eye: Pupillary Reactivity Unremarkable and Unable to Assess Visual Schilling; Negative Pupillary Size Unremarkable (3)
Cranial Nerve II: Right Eye: Pupillary Reactivity Unremarkable and Unable to Assess Visual Schilling; Negative Pupillary Size Unremarkable (2)
Cranial Nerves III, IV, : Extraocular Movement: Extraocular Movement Full in all Directions
Cranial Nerve VII: Facial Symmetry: Normal Facial Symmetry
Cranial Nerve VIII: Hearing: Unremarkable Hearing to Normal Conversational Volume
Cranial Nerves IX, X: Palate Movement: Palate Elevation Symmetric
Cranial Nerve XI: Shoulder Shrug: Unremarkable
Cranial Nerve XII: Tongue Protusion: Midline and Other (no tongue laceration noted)
Muscle Strength, Overall: Spontaneously Moves
Muscle Bulk & Tone: Bulk Unremarkable and Tone Unremarkable
Pronator Drift: No Drift in Upper Extremities and No Drift in Lower Extremities
Deep Tendon Reflexes: Unremarkable Throughout
Cold Sensation: Unable to Assess
Vibration Sensation: Unable to Assess
Touch Sensation: Unable to Assess
Coordination: Unable to Assess
Babinski Sign: Absent Bilaterally
Gait & Station: Unable to Assess
Data Reviewed
-
CT Head: Report Reviewed and Image Reviewed
Labs: Report Reviewed
Reviewed with: Physician and Patient
Medications
-
Active Medications
Generic Name Dose Route Start Last Admin
Trade Name Freq PRN Reason Stop Dose Admin
Amlodipine Besylate 10 mg 04/14/23 08:00 04/14/23 09:01
Amlodipine 10 Mg Tablet PO 05/12/23 07:59 10 mg
DAILY ROSALINDA Administration
Clotrimazole 0 applic 04/12/23 12:00 04/14/23 09:02
Clotrimazole 1% (Cream) 30 Gram Tube TOPICAL 05/10/23 11:59 1 applic
BID ROSALINDA Administration
Divalproex Sodium 1,000 mg 04/13/23 22:00 04/13/23 21:14
Divalproex 500 Mg Extended Release (24 Hr) Tablet PO 05/11/23 21:59 1,000 mg
HS ROSALINDA Administration
Enoxaparin Sodium 40 mg 04/11/23 19:08 04/13/23 16:48
Enoxaparin Sodium 40 Mg/0.4 Ml Syringe SC 05/09/23 19:07 40 mg
QPM ROSALINDA Administration
Losartan Potassium 100 mg 04/14/23 08:00 04/14/23 09:04
Losartan 100 Mg Tablet PO 05/12/23 07:59 100 mg
DAILY ROSALINDA Administration
Metoprolol Tartrate 50 mg 04/13/23 23:45 04/14/23 09:00
Metoprolol 50 Mg Regular Release Tablet PO 05/11/23 23:44 50 mg
BID ROSALINDA Administration
Miconazole Nitrate 0 applic 04/11/23 21:00 04/14/23 09:01
Miconazole Powder Bottle TOPICAL 05/09/23 20:59 1 applic
BID ROSALINDA Administration
Risperidone 0.25 mg 04/12/23 18:29 04/14/23 04:55
Risperidone 0.5 Mg Orally Disintegrating Tablet PO 05/10/23 18:28 0.25 mg
Q8HPRN PRN Administration
agitation
Risperidone 0.5 mg 04/12/23 22:00 04/13/23 21:20
Risperidone 0.5 Mg Orally Disintegrating Tablet PO 05/10/23 21:59 0.5 mg
HS ROSALINDA Administration
Sodium Chloride 0 flush 04/11/23 20:00
Sodium Chloride 0.9% (Flush) Syringe IV 05/09/23 19:59
PER PROTOCOL ROSALINDA
Trazodone HCl 50 mg 04/12/23 22:00 04/13/23 21:14
Trazodone 50 Mg Tablet PO 05/10/23 21:59 50 mg
HS ROSALINDA Administration
Home Medications
Medication Instructions Recorded
acetaminophen 325 mg tablet 650 mg PO Q6HPRN PRN MILD PAIN 03/03/23
(Tylenol)
amlodipine 10 mg tablet (Norvasc) 10 mg PO DAILY Blood Pressure 03/03/23
atorvastatin 10 mg tablet (Lipitor) 10 mg PO DAILY High Cholesterol 03/03/23
benztropine 1 mg tablet 1 mg PO BID Neurological Condition 03/03/23
bisacodyl 10 mg rectal suppository 10 mg TX DAILYPRN PRN IF NO BM 03/03/23
(Dulcolax (bisacodyl)) AFTR MOM
cholecalciferol (vitamin D3) 10 10 mcg PO DAILY Supplement 03/03/23
mcg (400 unit) tablet (Vitamin D3)
clonazepam 1 mg tablet 0.5 mg PO BID Mental Health/Anxiety 03/03/23
diclofenac sodium 1 % topical gel 0 g topical Q8HPRN PRN FRONT AND 03/03/23
BACK OF SHOULDERS
folic acid 1 mg tablet 1 mg PO DAILY Supplement 03/03/23
furosemide 20 mg tablet 20 mg PO DAILYPRN PRN edema 03/03/23
gabapentin 300 mg capsule 300 mg PO TID Neurological 03/03/23
Condition
levothyroxine 50 mcg tablet 50 mcg PO DAILY@07 Thyroid 03/03/23
(Synthroid)
melatonin 3 mg tablet 3 mg PO HS Sleep 03/03/23
pantoprazole 40 mg tablet,delayed 40 mg PO DAILY Gastrointestinal 03/03/23
release Issue
sennosides 8.6 mg-docusate sodium 2 tab-cap PO BID Constipation 03/03/23
50 mg tablet (Senna Plus)
sodium phosphates 19 gram-7 118 ml TX DAILYPRN PRN IF NO BM 03/03/23
gram/118 mL enema (Fleet Enema) AFTR DULCOLAX
trazodone 50 mg tablet 50 mg PO HS Sleep 03/03/23
bupropion HCl 300 mg 24 hr tablet, 300 mg PO DAILY Depression 04/11/23
extended release (Wellbutrin XL)
cyclobenzaprine 5 mg tablet 5 mg PO Q8HPRN PRN spasms 04/11/23
divalproex 250 mg tablet,delayed 1,250 mg PO HS Neurological 04/11/23
release Condition
docusate sodium 100 mg capsule 200 mg PO DAILY Constipation 04/11/23
(Colace)
hydrocortisone 1 % topical cream 1 applic topical BID behind right 04/11/23
ear
losartan 100 mg tablet 100 mg PO DAILY Blood Clot 04/11/23
Prevention/Tx
magnesium hydroxide 400 mg/5 mL 2,400 mg PO [id number] PRN if no bm 04/11/23
oral suspension (Milk of Magnesia) by 3rd day
metoprolol tartrate 50 mg tablet 50 mg PO BID Blood Pressure 04/11/23
(Lopressor)
risperidone 0.5 mg tablet 0.5 mg PO HS Mental Health/Anxiety 04/11/23
[2023-04-14] MEDS: NORVASC 10 MG PO (09:01)
[2023-04-14] MEDS: DESENEX/MITRAZOL/ZEASORB 1 APPLIC TOPICAL ×2 (09:01→22:57)
[2023-04-14] MEDS: LOTRIMIN 1% CREAM 1 APPLIC TOPICAL ×2 (09:02→22:58)
[2023-04-14] MEDS: COZAAR 100 MG PO (09:04)
--- NOTE | 2023-04-14 15:16 | W.PN.HOSP.TC ---
Today's Communication/Plan
-
monitor BP with resumption of BP meds
Assessment / Plan
Assessment / Plan
Assessment:
Acute change in mental status
TME of unclear etiology vs psychosis from schizophrenia
- EEG unremarkable
- for MRI brain if able to tolerate
- no evidence of new meds or infection, no other obvious medical cause to explain
- hold Klonopin
- Neurology following; follow their recs
- Psych following. Resumed patient back on Risperdal, Trazodone. VPA level is 16.5 (previously 80), Depakote resumed by psych. Wellbutrin/Benztropine on hold. Attempt to obtain records from recent intake at [facility].
- continue 1:1/sitter
Fungal looking rash behind both ears
- continue Lotrimin
Essential HTN
- continue Norvasc/Losartan/BB - monitor BP
Hypothyroidism
- continue Levothyroxine
DVT ppx: Lovenox
Code: Full
Anticipated Discharge: 24 - 48 hours
Subjective/Interval History
-
Date of Service: April 14, 2023
hypertensive overnight
Objective Data
-
Labs:
Laboratory Results
04/14/23
06:17
WBC 6.7
Hgb 12.1
Hct 36.0 L
Plt Count 141
Sodium 139
Potassium 3.4 L
Chloride 108 H
Carbon Dioxide 22
BUN 14
Creatinine 0.8
Glucose 100 H
Calcium 9.2
Vital Signs:
Vital Signs
Temp Pulse Resp BP Pulse Ox
98.4 F 82 18 168/85 97
04/14/23 07:00 04/14/23 09:00 04/14/23 07:00 04/14/23 09:00 04/14/23 07:00
I&O
04/13/23 04/14/23 04/15/23
06:59 06:59 06:59
Intake Total 960 / 960 1090 / 1090
Output Total 1175 / 1175
Balance -215 / -215 1090 / 1090
Physical Exam
-
General: No Apparent Distress
HEENT: Normocephalic and Atraumatic
Respiratory: Negative Wheezes
Cardiac: Regular Rhythm and S1/S2
GI: Soft
Genito-urinary: No Costovertebral Tender
Musculoskeletal: No Edema
Neuro: AO x 3
Psych: Calm
Data Reviewed
-
Total Time Spent with Patient (in minutes): 47
Labs: Labs Reviewed by me
[2023-04-14 15:36] VITALS: BP 180/99
--- NOTE | 2023-04-14 16:50 | W.PN.UPDATE ---
Update Note
Progress Note Update
Pt seen, chart reviewed. Pt resting in bed, awake, makes eye contact, gives limited and disorganized answers. Slightly more alert/clearer than yesterday. Restarted on Depakote ER 1000 mg HS last night (previously on DR 1250 mg HS). Tolerating
resumption of Risperidone for Schizophrenia. Noted by Neurology to have TD with recommendation to avoid dopamine blocking agents.
Imp: Schizophrenia, by history, appears fairly stable, possibly close to baseline�mental state
� � � change in mental status with lethargy, appears to be improving
Rec:� Would continue Risperidone (rather than starting Clozaril or Seroquel- options with lower risk of TD), Trazodone, Depakote ER- will need repeat blood level after a few days. Medication for TD can be explored after discharge.
�� Will follow
--- NOTE | 2023-04-14 16:59 | CM ---
Reviewed chart, spoke with patient's sister to obtain information for assessment. Patient's sister appeared forgetful and CM had to redirect her. Per patient's sister, Patient was at [facility] it sounded like inpatient psych but they will not take
patient back. Patient's sister did not specify why. She fell at the snf and subsequently went to [facility]. Patient's sister stated that she does not want patient going back to [facility] and called the [facility] to do an investigation on them.
Patient's sister stated that she would like for patient to go to a SNF in the [facility] as that would be a lot closer to her.
Will research facilities in that area. Spoke with electrical assemblies supervisor who stated that if patient is unable to be transitioned to an NH out there she may have to return to [facility] and have them facilitate transfer. Patient will most likely be a level 2
admission due to psych hx.
Plan: Case management will continue to follow and assist with discharge planning. Back to SNF upon medical clearance.
[2023-04-14] MEDS: LOVENOX 40 MG SC (17:51)
[2023-04-14] MEDS: APRESOLINE 5 MG IV (18:47)
[2023-04-14] MEDS: DEPAKOTE ER (24 HR RELEASE) 1000 MG PO (22:54)
[2023-04-14] MEDS: DESYREL 50 MG PO (22:55)
[2023-04-14] MEDS: RISPERDAL M-TAB (ORALLY DISINTEGRATING) 0.5 MG PO (22:55)
[2023-04-14 23:05] VITALS: BP 183/93
[2023-04-15 06:26] VITALS: BP 187/110
[2023-04-15 06:28] LABS: % Basophils 1.4 % (0-2); % Eosinophils 4.1 % (0-6); % Immature Granulocytes 0.2 % (0-0.5); % Lymphocytes 34.8 % (20.5-51.1); % Monocytes 12.9 % (1.7-9.3); % Neutrophils 46.6 % (42.2-75.2); Absolute Basophils 0.1 10^3/uL (0-0.2); Absolute Eosinophils 0.2 10^3/uL (0-0.7); Absolute Lymphocytes 1.5 10^3/uL (1.2-3.4); Absolute Monocytes 0.6 10^3/uL (0.1-0.6); Absolute Neutrophils 2.1 10^3/uL (1.4-6.5); Hematocrit 41.9 % (37.0-47.0); Hemoglobin 14.1 g/dL (12.0-16.0); Mean Corp Hgb Conc. 33.7 g/dL (33.0-37.0); Mean Corpuscular Hgb 27.5 pg (27.0-31.0); Mean Corpuscular Volume 81.8 fL (81.0-99.0); Mean Platelet Volume 9.4 fL (7.4-10.4); Nucleated Red Blood Cells % 0 %; Platelet Count 175 10^3/uL (130-400); Red Blood Cell Count 5.12 10^6/uL (4.20-5.40); White Blood Cell Count 4.4 10^3/uL (4.8-10.8)
--- NOTE | 2023-04-15 06:30 | PTCARENOTE ---
@0630; Pt continues to need Med sitter for her impulse behavior with bed alarm.Pt oriented x1 to name only.Pt requires frequent verbal redirection and assistance to bathroom with staff and rolling walker.
[2023-04-15] MEDS: APRESOLINE 5 MG IV (06:34)
[2023-04-15] MEDS: FLUSH (NSS) 1 FLUSH IV (06:35)
[2023-04-15 07:00] VITALS: BP 161/80
[2023-04-15 07:30] LABS: Blood Urea Nitrogen 12 mg/dl (7-17); Calcium 9.6 mg/dl (8.4-10.2); Carbon Dioxide 21 mmol/L (22-30); Chloride 108 mmol/L (98-107); Estimated Creatinine Clearance 99 ml/min; Glucose 93 mg/dl (70-99); Potassium 3.8 mmol/L (3.5-5.1); Sodium 141 mmol/L (135-145); eGFR > 60.00
--- NOTE | 2023-04-15 10:00 | CM ---
Addendum entered by EDUARDO Parrish 04/15/23 16:31:
Received notification from attending that patient is now being recommended for Psych. Will work on Psych placement.
Original Note:
Spoke with CM supervisor enrobing regarding family not wanting patient to return to [facility]. As patient is limited as far as facilities secondary to her psych hx, plan should be for CM at [facility] to facilitate a transition to another accepting facility
closer to home upon her return. Will send out referrals in the [place] area however while patient is in acute care, if patient is medically stable prior to another accepting facility is found, patient will need to return back to [facility] as
that is where she has been since 02/05.
Spoke with Anette in admissions at [facility] who confirmed that patient came to her facility on 02/05 and prior to that was at [facility]. [facility] in [place] sent patient to [facility] and [facility] sent patient to [facility] for two weeks
throughout her admission there as she was exhibiting worrisome and problematic behaviors. Upon her return, she mentally was not at her baseline and therefore, they sent her to for further evaluation.
Attending requested CM attempt to obtain records from [facility]. Will call them this morning.
Anette stated that despite patient returning from [facility], she would still be a level 2 admission prior to returning to [facility]. Will call the [facility] to confirm that this is the case.
Plan: Case management will continue to follow and assist with discharge planning. Back to [facility] vrs. alternate SNF if one can accept patient prior to her being medically stable.
[2023-04-15] MEDS: NORVASC 10 MG PO (10:39)
[2023-04-15] MEDS: DESENEX/MITRAZOL/ZEASORB 1 APPLIC TOPICAL ×2 (10:40→20:23)
[2023-04-15] MEDS: LOPRESSOR 50 MG PO ×2 (10:40→20:24)
[2023-04-15] MEDS: COZAAR 100 MG PO (10:40)
[2023-04-15] MEDS: LOTRIMIN 1% CREAM 1 APPLIC TOPICAL ×2 (10:41→20:24)
--- NOTE | 2023-04-15 11:21 | W.PN.HOSP.TC ---
Today's Communication/Plan
-
med adjustments per psych with possible pursue IP psych
Assessment / Plan
Assessment / Plan
Assessment:
Acute change in mental status
TME of unclear etiology vs psychosis from schizophrenia
- EEG unremarkable
- for MRI brain if able to tolerate
- no evidence of new meds or infection, no other obvious medical cause to explain
- hold Klonopin
- Neurology following; follow their recs
- Psych following. Resumed patient back on Risperdal, Trazodone. VPA level is 16.5 (previously 80), Depakote resumed by psych. Wellbutrin/Benztropine on hold. Attempt to obtain records from recent intake at [facility] not
successful. Ideally patient could be on Clozaril and with IP psych placement, will d/w Psych and CM.
- continue 1:1/sitter
Fungal looking rash behind both ears
- continue Lotrimin
Essential HTN
- continue Norvasc/Losartan/BB - monitor BP
- prn Hydralazine available.
Hypothyroidism
- continue Levothyroxine
DVT ppx: Lovenox
Code: Full
Anticipated Discharge: 24 - 48 hours
Subjective/Interval History
-
Date of Service: April 15, 2023
remains with paranoia at times
Objective Data
-
Labs:
Laboratory Results
04/15/23
06:15
WBC 4.4 L
Hgb 14.1
Hct 41.9
Plt Count 175 D
Sodium 141
Potassium 3.8
Chloride 108 H
Carbon Dioxide 21 L
BUN 12
Creatinine 0.7
Glucose 93
Calcium 9.6
Vital Signs:
Vital Signs
Temp Pulse Resp BP Pulse Ox
98.1 F 68 18 161/80 99
04/15/23 07:00 04/15/23 07:00 04/15/23 07:00 04/15/23 07:00 04/15/23 07:00
I&O
04/14/23 04/15/23 04/16/23
06:59 06:59 06:59
Intake Total 1090 / 1090 520 / 520
Balance 1090 / 1090 520 / 520
Physical Exam
-
General: No Apparent Distress
HEENT: Normocephalic and Atraumatic
Respiratory: Negative Wheezes or Rales
Cardiac: Regular Rhythm and S1/S2
GI: Soft and Nontender
Genito-urinary: No Costovertebral Tender
Neuro: AO x 3
Psych: Calm
Data Reviewed
-
Total Time Spent with Patient (in minutes): 45
Labs: Labs Reviewed by me
[2023-04-15 12:00] VITALS: BP 172/95; PULSE 70; O2SAT 98
[2023-04-15 12:05] VITALS: BP 172/95; PULSE 70; O2SAT 98
--- NOTE | 2023-04-15 14:33 | W.PN.UPDATE ---
Update Note
Progress Note Update
patient seen chart reviewed. spoke with nursing and with dr bunch. attempted to talk to patient but even when i asked innocuous questions she responded in a very paranoid manner. in fact in about 15 minutes she went from calm to loud verbalizing
'They are doing testing on me....' clearly with the belief that someone is experimenting on her. she is psychotic at this point. she also has tardive dyskinesia with movements that are not limited to her facial muscles. she is taking depakote and
risperdal but the dose of risperdal is minimal. i will increase to bid however keno terminal operator she would be better servied by clozaril which does not cause tardive dyskinesia. i would suggest considering a psychiatric hospital to make the transition from
risperdal to clozaril. another issue however vis a vis clozaril is ecg read as prolonged qtc. re tardive dyskinesia she might also benefit from ingrezza but not formulary here.
[2023-04-15 15:00] VITALS: BP 120/67
[2023-04-15] MEDS: LOVENOX 40 MG SC (17:49)
[2023-04-15] MEDS: RISPERDAL M-TAB (ORALLY DISINTEGRATING) 0.5 MG PO (20:24)
[2023-04-15] MEDS: TYLENOL 650 MG PO (21:58)
[2023-04-15] MEDS: DESYREL 50 MG PO (21:58)
[2023-04-15] MEDS: DEPAKOTE ER (24 HR RELEASE) 1000 MG PO (21:58)
--- NOTE | 2023-04-15 22:00 | PTCARENOTE ---
Pt complained of mild pain throughout her lower middle abd. Pt stated, 'It feels like my bladder hurts'. ELECTRICAL INTERN made aware, new order provided, see MAR. Will continue to monitor.
[2023-04-15 23:00] VITALS: BP 131/61
--- NOTE | 2023-04-16 01:32 | W.PN.UPDATE ---
Update Note
Progress Note Update
RN notified HIDE WASHER patient c/o pain at the bladder site, voided, urine looked cloudy, last Urine negative. Advised RN to collect to urine sample and to bladder scan post void once. Denies any other symptoms.
[2023-04-16 06:24] LABS: % Basophils 1.2 % (0-2); % Eosinophils 3.2 % (0-6); % Immature Granulocytes 0.4 % (0-0.5); % Monocytes 12.3 % (1.7-9.3); % Neutrophils 53.9 % (42.2-75.2); Absolute Basophils 0.1 10^3/uL (0-0.2); Absolute Eosinophils 0.2 10^3/uL (0-0.7); Absolute Lymphocytes 1.6 10^3/uL (1.2-3.4); Absolute Monocytes 0.7 10^3/uL (0.1-0.6); Hematocrit 37.7 % (37.0-47.0); Hemoglobin 12.7 g/dL (12.0-16.0); Mean Corp Hgb Conc. 33.7 g/dL (33.0-37.0); Mean Corpuscular Hgb 27.7 pg (27.0-31.0); Mean Corpuscular Volume 82.3 fL (81.0-99.0); Mean Platelet Volume 9.4 fL (7.4-10.4); Nucleated Red Blood Cells % 0 %; Platelet Count 178 10^3/uL (130-400); Red Blood Cell Count 4.58 10^6/uL (4.20-5.40); Red Cell Dist. Width 14.3 % (11.5-14.5); White Blood Cell Count 5.6 10^3/uL (4.8-10.8)
[2023-04-16 07:00] VITALS: BP 150/74
[2023-04-16 07:07] LABS: Blood Urea Nitrogen 17 mg/dl (7-17); Calcium 9.5 mg/dl (8.4-10.2); Carbon Dioxide 25 mmol/L (22-30); Chloride 107 mmol/L (98-107); Estimated Creatinine Clearance 77 ml/min; Glucose 97 mg/dl (70-99); Potassium 3.7 mmol/L (3.5-5.1); Sodium 141 mmol/L (135-145); eGFR > 60.00
[2023-04-16] MEDS: LOTRIMIN 1% CREAM 1 APPLIC TOPICAL ×2 (08:49→20:27)
[2023-04-16] MEDS: LOPRESSOR 50 MG PO (08:49)
[2023-04-16] MEDS: DESENEX/MITRAZOL/ZEASORB 1 APPLIC TOPICAL ×2 (08:49→20:26)
[2023-04-16] MEDS: NORVASC 10 MG PO (08:49)
[2023-04-16] MEDS: COZAAR 100 MG PO (08:49)
[2023-04-16] MEDS: RISPERDAL M-TAB (ORALLY DISINTEGRATING) 0.5 MG PO ×2 (08:49→20:26)
[2023-04-16 09:26] LABS: Urine Albumin 1+ (Neg - Trace); Urine Bilirubin 1+ (Negative); Urine Character Very Cloudy (Clear); Urine Color Yellow; Urine Glucose Negative (Negative); Urine Ketone Negative (Negative); Urine Leukocyte 2+ (Negative); Urine Nitrite Positive (Negative); Urine Occult Blood 3+ (Negative); Urine Urobilinogen 2+ (Neg - 1+)
[2023-04-16 10:21] LABS: Urine White Cell >100 /HPF (0-5)
--- NOTE | 2023-04-16 11:41 | W.PN.HOSP.TC ---
Today's Communication/Plan
-
UTI tx
increase BB
Assessment / Plan
Assessment / Plan
Assessment:
Acute change in mental status
TME of unclear etiology vs psychosis from schizophrenia
- EEG unremarkable
- for MRI brain if able to tolerate
- no evidence of new meds or infection, no other obvious medical cause to explain
- hold Klonopin
- Neurology following; follow their recs
- Psych following. Resumed patient back on Risperdal, Trazodone. VPA level is 16.5 (previously 80), Depakote resumed by psych. Wellbutrin/Benztropine on hold. Attempt to obtain records from recent intake at [facility] not
successful. Ideally patient could be on Clozaril and with IP psych placement, will d/w Psych and CM.
- continue 1:1/sitter
UTI
- start Rocephin, day 1 pending cultures
Fungal looking rash behind both ears
- continue Lotrimin
Essential HTN
- continue Norvasc/Losartan/BB - monitor BP
- prn Hydralazine available.
Hypothyroidism
- continue Levothyroxine
DVT ppx: Lovenox
Code: Full
Anticipated Discharge: > 48 hours
Subjective/Interval History
-
Date of Service: April 16, 2023
overnight with UTI sx, confirmed on UA And being treated
denies any complaints
Objective Data
-
Labs:
Laboratory Results
04/16/23
06:00
WBC 5.6
Hgb 12.7
Hct 37.7
Plt Count 178
Sodium 141
Potassium 3.7
Chloride 107
Carbon Dioxide 25
BUN 17
Creatinine 0.9
Glucose 97
Calcium 9.5
Vital Signs:
Vital Signs
Temp Pulse Resp BP Pulse Ox
98.3 F 68 18 150/74 95
04/16/23 07:00 04/16/23 07:00 04/16/23 07:00 04/16/23 07:00 04/16/23 07:00
I&O
04/15/23 04/16/23 04/17/23
06:59 06:59 06:59
Intake Total 520 / 520 840 / 840 100 / 100
Output Total 100 / 100
Balance 520 / 520 840 / 840 0 / 0
Physical Exam
-
General: No Apparent Distress
HEENT: Normocephalic and Atraumatic
Respiratory: Negative Wheezes or Rales
Cardiac: Regular Rhythm and S1/S2
GI: Soft
Genito-urinary: No Costovertebral Tender
Neuro: AO x 3
Data Reviewed
-
Total Time Spent with Patient (in minutes): 45
Labs: Labs Reviewed by me
--- NOTE | 2023-04-16 11:53 | W.PN.UPDATE ---
Update Note
Progress Note Update
patient seen chart reviewed. discussed w dr bunch. noted not movement on the issue of psych hosp. dr bunch spoke w ewa who is going to get on it. the patient seemed to me to be a bit better today. she did talk about her hx informing me she had lived
at [facility] for seven years and really missed that milieu. she had been living in a nh. she is still a bit confused...did not realize she was in a hospital . i did explain to her why she is here. for the moment will continue w current
medications. will follow
[2023-04-16] MEDS: ROCEPHIN 1000 MG IV (12:48)
[2023-04-16] MEDS: STERILE WATER FOR INJECTION 10 ML IV (12:49)
--- NOTE | 2023-04-16 13:32 | CM ---
Spoke with attending who stated that the indication is still for Geropysch for patient. Per attending patient's sister stated that patient has been to [place] in the past and she would like for her to return there. She wants to keep her in the
[place] area. Will make referrals once patient is medically stable.
Plan: Case management will continue to follow and assist with discharge planning. Hopeful Geropysch placement upon medical clearance.
[2023-04-16 15:00] VITALS: BP 156/92
[2023-04-16] MEDS: LOVENOX 40 MG SC (17:36)
[2023-04-16] MEDS: LOPRESSOR 75 MG PO (20:18)
[2023-04-16] MEDS: DESYREL 50 MG PO (21:30)
[2023-04-16] MEDS: DEPAKOTE ER (24 HR RELEASE) 1000 MG PO (21:30)
[2023-04-16 23:00] VITALS: BP 153/79
[2023-04-17 06:29] LABS: % Basophils 1.4 % (0-2); % Eosinophils 4.1 % (0-6); % Immature Granulocytes 0.4 % (0-0.5); % Monocytes 12.2 % (1.7-9.3); % Neutrophils 50.9 % (42.2-75.2); Absolute Basophils 0.1 10^3/uL (0-0.2); Absolute Eosinophils 0.2 10^3/uL (0-0.7); Absolute Lymphocytes 1.6 10^3/uL (1.2-3.4); Absolute Monocytes 0.6 10^3/uL (0.1-0.6); Absolute Neutrophils 2.6 10^3/uL (1.4-6.5); Hematocrit 38.6 % (37.0-47.0); Hemoglobin 13.2 g/dL (12.0-16.0); Mean Corp Hgb Conc. 34.2 g/dL (33.0-37.0); Mean Corpuscular Hgb 27.6 pg (27.0-31.0); Mean Corpuscular Volume 80.8 fL (81.0-99.0); Mean Platelet Volume 9.5 fL (7.4-10.4); Nucleated Red Blood Cells % 0 %; Platelet Count 203 10^3/uL (130-400); Red Blood Cell Count 4.78 10^6/uL (4.20-5.40); Red Cell Dist. Width 14.3 % (11.5-14.5); White Blood Cell Count 5.1 10^3/uL (4.8-10.8)
[2023-04-17 06:58] LABS: Blood Urea Nitrogen 20 mg/dl (7-17); Calcium 9.3 mg/dl (8.4-10.2); Carbon Dioxide 22 mmol/L (22-30); Chloride 110 mmol/L (98-107); Estimated Creatinine Clearance 87 ml/min; Glucose 90 mg/dl (70-99); Potassium 3.8 mmol/L (3.5-5.1); Sodium 139 mmol/L (135-145); eGFR > 60.00
[2023-04-17 07:00] VITALS: BP 176/92
[2023-04-17] MEDS: NORVASC 10 MG PO (07:40)
[2023-04-17] MEDS: LOPRESSOR 75 MG PO ×2 (07:40→20:21)
[2023-04-17] MEDS: RISPERDAL M-TAB (ORALLY DISINTEGRATING) 0.5 MG PO ×2 (07:40→20:21)
[2023-04-17] MEDS: COZAAR 100 MG PO (07:41)
[2023-04-17] MEDS: DESENEX/MITRAZOL/ZEASORB 1 APPLIC TOPICAL ×2 (07:44→20:35)
[2023-04-17] MEDS: LOTRIMIN 1% CREAM 1 APPLIC TOPICAL ×2 (07:45→20:36)
[2023-04-17 10:48] VITALS: BP 148/71
[2023-04-17] MEDS: ROCEPHIN 1000 MG IV (11:56)
[2023-04-17] MEDS: STERILE WATER FOR INJECTION 10 ML IV (11:56)
[2023-04-17 14:43] VITALS: BMI 33.9
[2023-04-17 15:00] VITALS: BP 168/91
--- NOTE | 2023-04-17 15:04 | W.PN.HOSP.TC ---
Today's Communication/Plan
-
continue UTI
awaiting IP Psych placement
Assessment / Plan
Assessment / Plan
Assessment:
Acute change in mental status
TME of unclear etiology vs psychosis from schizophrenia
- EEG unremarkable
- for MRI brain if able to tolerate
- no evidence of new meds or infection, no other obvious medical cause to explain
- hold Klonopin
- Neurology following; follow their recs
- Psych following. Resumed patient back on Risperdal, Trazodone. VPA level is 16.5 (previously 80), Depakote resumed by psych. Wellbutrin/Benztropine on hold. Attempt to obtain records from recent intake at [facility] not
successful. Ideally patient could be on Clozaril and with IP psych placement, will d/w Psych and CM.
- continue 1:1/sitter
E. Coli UTI
- continue Rocephin, day 2 pending cultures
Fungal looking rash behind both ears
- continue Lotrimin
Essential HTN
- continue Norvasc/Losartan/BB - monitor BP
- prn Hydralazine available.
Hypothyroidism
- continue Levothyroxine
DVT ppx: Lovenox
Code: Full
Anticipated Discharge: > 48 hours
Subjective/Interval History
-
Date of Service: April 17, 2023
no new complaints
did not sleep well overnight
Objective Data
-
Labs:
Laboratory Results
04/17/23
06:02
WBC 5.1
Hgb 13.2
Hct 38.6
Plt Count 203
Sodium 139
Potassium 3.8
Chloride 110 H
Carbon Dioxide 22
BUN 20 H
Creatinine 0.8
Glucose 90
Calcium 9.3
Vital Signs:
Vital Signs
Temp Pulse Resp BP Pulse Ox
98.3 F 71 18 148/71 98
04/17/23 07:00 04/17/23 10:48 04/17/23 07:00 04/17/23 10:48 04/17/23 07:00
I&O
04/16/23 04/17/23 04/18/23
06:59 06:59 06:59
Intake Total 840 / 840 440 / 440
Output Total 280 / 280
Balance 840 / 840 160 / 160
Physical Exam
-
General: No Apparent Distress
HEENT: Normocephalic and Atraumatic
Respiratory: Negative Wheezes or Rales
Cardiac: Regular Rhythm and S1/S2
GI: Soft
Genito-urinary: No Costovertebral Tender
Neuro: AO x 3
Hematologic / Lymphatic: No Lymphadenopathy
Psych: Calm
Data Reviewed
-
Total Time Spent with Patient (in minutes): 42
Labs: Labs Reviewed by me
--- NOTE | 2023-04-17 16:17 | CM ---
Reviewed chart, TT Dr. Reed to determine if patient needs to be a 201 prior to psych transfer. Will await response.
Plan: Case management will continue to follow and assist with discharge planning/transfer to psych upon medical clearance.
[2023-04-17] MEDS: LOVENOX 40 MG SC (17:12)
[2023-04-17] MEDS: APRESOLINE 5 MG IV (21:36)
[2023-04-17] MEDS: DESYREL 50 MG PO (21:57)
[2023-04-17] MEDS: DEPAKOTE ER (24 HR RELEASE) 1000 MG PO (21:57)
[2023-04-17 23:25] VITALS: BP 163/86
[2023-04-18] MEDS: APRESOLINE 5 MG IV (03:24)
[2023-04-18] MEDS: ATIVAN 0.5 MG IV (04:43)
[2023-04-18] MEDS: DUONEB 3 ML INH (05:01)
--- NOTE | 2023-04-18 05:17 | PTCARENOTE ---
Pt was able to sleep very briefly overnight. Pt was then heard screaming 'I can't breathe' and staff at bedside to assess patient. Pt noted to be tachy to 110s and O2 sats >97% on room air. Pt continues to scream 'I can't breathe' and placing arm
over chest. Pt agitated with staff. EKG performed. REINSURANCE CLAIMS ANALYST aware and at bedside to assess patient. IV ativan ordered and administered. Pt placed on 2L O2 for comfort. Respiratory at bedside to assess pt and administered neb. Pt responds well to
reassurance by staff. Pt calm at this time - HOB elevated, remains on 2L O2. Plan for portable chest xray.
[2023-04-18 07:11] VITALS: BP 150/85
[2023-04-18] MEDS: LOPRESSOR 75 MG PO (07:13)
[2023-04-18] MEDS: NORVASC 10 MG PO (07:13)
[2023-04-18] MEDS: COZAAR 100 MG PO (07:13)
[2023-04-18] MEDS: RISPERDAL M-TAB (ORALLY DISINTEGRATING) 0.5 MG PO ×2 (07:13→19:32)
[2023-04-18] MEDS: DESENEX/MITRAZOL/ZEASORB 1 APPLIC TOPICAL ×2 (07:14→19:33)
[2023-04-18] MEDS: LOTRIMIN 1% CREAM 1 APPLIC TOPICAL ×2 (07:15→19:33)
[2023-04-18 08:38] LABS: COVID-19 Antigen Negative (Negative)
--- NOTE | 2023-04-18 10:03 | W.PN.HOSP.TC ---
Today's Communication/Plan
-
increase BB dose
DC planning to IP Psych
Assessment / Plan
Assessment / Plan
Assessment:
Acute change in mental status
TME of unclear etiology vs psychosis from schizophrenia
- EEG unremarkable
- MRI brain not performed as pt unlikely to tolerate
- hold Klonopin
- Neurology following; follow their recs
- Psych following. Resumed patient back on Risperdal, Trazodone. VPA level is 16.5 (previously 80), Depakote resumed by psych. Wellbutrin/Benztropine on hold. Attempt to obtain records from recent intake at [facility] not
successful. Ideally patient could be on Clozaril instead of Risperdal.
- Psych recommends IP psych placement. CM aware.
- continue 1:1/sitter
E. Coli UTI
- continue Rocephin, day 3 pending cultures
Fungal looking rash behind both ears
- continue Lotrimin
Essential HTN
- continue Norvasc/Losartan
- titrate BB higher
- follow BPs
- prn Hydralazine available.
Hypothyroidism
- continue Levothyroxine
DVT ppx: Lovenox
Code: Full
Anticipated Discharge: > 48 hours
Subjective/Interval History
-
Date of Service: April 18, 2023
agitated overnight, received Ativan x 1
Objective Data
-
Vital Signs:
Vital Signs
Temp Pulse Resp BP Pulse Ox
98.6 F 95 18 150/85 98
04/18/23 07:11 04/18/23 07:11 04/18/23 07:11 04/18/23 07:11 04/18/23 07:11
I&O
04/17/23 04/18/23 04/19/23
06:59 06:59 06:59
Intake Total 440 / 440 540 / 540
Output Total 280 / 280 390 / 390
Balance 160 / 160 150 / 150
Physical Exam
-
General: No Apparent Distress
HEENT: Normocephalic and Atraumatic
Respiratory: Negative Wheezes or Rales
Cardiac: Regular Rhythm and S1/S2
GI: Soft
Genito-urinary: No Costovertebral Tender
Neuro: AO x 3
Psych: Calm
Data Reviewed
-
Total Time Spent with Patient (in minutes): 44
Labs: Labs Reviewed by me
[2023-04-18] MEDS: LOPRESSOR 25 MG PO (11:26)
[2023-04-18] MEDS: STERILE WATER FOR INJECTION 10 ML IV (11:27)
[2023-04-18] MEDS: ROCEPHIN 1000 MG IV (11:28)
--- NOTE | 2023-04-18 12:28 | W.PN.UPDATE ---
Update Note
Progress Note Update
Psychiatry follow up. Patient is sitting up in bed looking at me but not answering any questions despite numerous efforts. She is calm but i'm unable to evaluate full mental status. Current medications include:
Trazodone 50mg HS
Depakote ER 1000mg HS (started 04/13)
Risperdal 0.5 BID
Melatonin 5mg HS
A/P- 58 yo female with schizophrenia and altered MSE secondary to UTI. Will continue current regimen for now and check VPA level in AM. Awaiting inpatient psych placement. Psych will continue to follow.
[2023-04-18 15:28] VITALS: BP 165/91
[2023-04-18] MEDS: LOVENOX 40 MG SC (17:35)
[2023-04-18 18:23] VITALS: BP 149/99
[2023-04-18] MEDS: LOPRESSOR 100 MG PO (19:32)
[2023-04-18] MEDS: DEPAKOTE ER (24 HR RELEASE) 1000 MG PO (21:37)
[2023-04-18] MEDS: DESYREL 50 MG PO (21:37)
[2023-04-18] MEDS: MELATONIN 5 MG PO (21:37)
[2023-04-18 23:05] VITALS: BP 160/78
[2023-04-19] MEDS: LOPRESSOR 100 MG PO ×2 (07:08→23:03)
[2023-04-19] MEDS: COZAAR 100 MG PO (07:08)
[2023-04-19] MEDS: NORVASC 10 MG PO (07:08)
[2023-04-19] MEDS: RISPERDAL M-TAB (ORALLY DISINTEGRATING) 0.5 MG PO ×2 (07:08→22:52)
[2023-04-19] MEDS: DESENEX/MITRAZOL/ZEASORB 1 APPLIC TOPICAL ×2 (07:08→22:50)
[2023-04-19] MEDS: LOTRIMIN 1% CREAM 1 APPLIC TOPICAL ×2 (07:09→22:51)
[2023-04-19 07:23] VITALS: BP 136/71
[2023-04-19 08:06] LABS: Depakane 89.7 ug/ml (50.0-120.0)
[2023-04-19 10:35] VITALS: BP 138/73; PULSE 70; O2SAT 99
[2023-04-19] MEDS: ROCEPHIN 1000 MG IV (11:40)
[2023-04-19] MEDS: STERILE WATER FOR INJECTION 10 ML IV (11:40)
--- NOTE | 2023-04-19 11:53 | W.PN.HOSP.TC ---
Today's Communication/Plan
-
bowel regimen
continue UTI tx
Assessment / Plan
Assessment / Plan
Assessment:
Acute change in mental status
TME of unclear etiology vs psychosis from schizophrenia
- EEG unremarkable
- MRI brain not performed as pt unlikely to tolerate
- hold Klonopin
- Neurology following; follow their recs
- Psych following. Resumed patient back on Risperdal, Trazodone. VPA level is 16.5 (previously 80), Depakote resumed by psych. Wellbutrin/Benztropine on hold. Attempt to obtain records from recent intake at [facility] not
successful. Ideally patient could be on Clozaril instead of Risperdal.
- Psych recommends IP psych placement. CM aware.
- continue 1:1/sitter
taylor-sensitive E. Coli UTI
- continue Rocephin, day 06/04
Fungal looking rash behind both ears
- continue Lotrimin
Essential HTN
- continue Norvasc/Losartan
- titrate BB higher
- follow BPs
- prn Hydralazine available.
Hypothyroidism
- continue Levothyroxine
Constipation
- add bowel regimen
DVT ppx: Lovenox
Code: Full
Anticipated Discharge: > 48 hours
Subjective/Interval History
-
Date of Service: April 19, 2023
anxious at times, no other complaints
Objective Data
-
Vital Signs:
Vital Signs
Temp Pulse Resp BP Pulse Ox
98.0 F 72 18 136/71 96
04/19/23 07:23 04/19/23 07:23 04/19/23 07:23 04/19/23 07:23 04/19/23 07:23
I&O
04/18/23 04/19/23 04/20/23
06:59 06:59 06:59
Intake Total 540 / 540 460 / 460
Output Total 390 / 390 400 / 400
Balance 150 / 150 60 / 60
Physical Exam
-
General: No Apparent Distress
HEENT: Normocephalic and Atraumatic
Respiratory: Negative Wheezes
Cardiac: Regular Rhythm and S1/S2
GI: Soft
Genito-urinary: No Costovertebral Tender
Neuro: AO x 3
Psych: Calm
Data Reviewed
-
Total Time Spent with Patient (in minutes): 45
Labs: Labs Reviewed by me
[2023-04-19] MEDS: SENOKOT 8.59999999999999964 MG PO ×2 (13:00→22:52)
[2023-04-19] MEDS: MIRALAX 17 GRAMS PO (13:00)
[2023-04-19 15:03] VITALS: BP 157/83
--- NOTE | 2023-04-19 16:06 | W.PN.UPDATE ---
Update Note
Progress Note Update
chart reviewed- pt seen.
Today pt was talkative and more cooperative than in past few days. She told me that she is really frustrated at 'sitting around for days.' While she couldn't discuss current her life situation coherently with me, she did say that she knows she
gets angry too quickly. 'I have had this problem all my life.' She also mentioned that her sister asked her to move closer to where she lives.
She did not know the mname/ dose of her medications right now. I told her that she has been taking Risperdal, and Valproate- she insisted she is not on Valproate.
Her Valproic acid level was 89 today- not elevated and not subtherapeutic.
Pt's thought disorder seems to be improving.
Maintain current meds.
[2023-04-19] MEDS: LOVENOX 40 MG SC (17:03)
[2023-04-19] MEDS: DEPAKOTE ER (24 HR RELEASE) 1000 MG PO (22:52)
[2023-04-19] MEDS: MELATONIN 5 MG PO (22:53)
[2023-04-19] MEDS: DESYREL 50 MG PO (22:53)
[2023-04-19 23:12] VITALS: BP 168/107
[2023-04-20 06:10] LABS: Hematocrit 38.4 % (37.0-47.0); Hemoglobin 12.8 g/dL (12.0-16.0); Mean Corp Hgb Conc. 33.3 g/dL (33.0-37.0); Mean Corpuscular Hgb 27.8 pg (27.0-31.0); Mean Corpuscular Volume 83.3 fL (81.0-99.0); Mean Platelet Volume 9.1 fL (7.4-10.4); Platelet Count 264 10^3/uL (130-400); Red Blood Cell Count 4.61 10^6/uL (4.20-5.40); Red Cell Dist. Width 14.3 % (11.5-14.5)
[2023-04-20 06:49] LABS: Blood Urea Nitrogen 28 mg/dl (7-17); Calcium 9.5 mg/dl (8.4-10.2); Carbon Dioxide 25 mmol/L (22-30); Chloride 106 mmol/L (98-107); Estimated Creatinine Clearance 87 ml/min; Glucose 90 mg/dl (70-99); Potassium 4.4 mmol/L (3.5-5.1); Sodium 140 mmol/L (135-145); eGFR > 60.00
[2023-04-20 07:00] VITALS: BP 159/89
[2023-04-20] MEDS: LOPRESSOR 100 MG PO ×2 (09:07→22:18)
[2023-04-20] MEDS: MIRALAX 17 GRAMS PO ×2 (09:07)
[2023-04-20] MEDS: COZAAR 100 MG PO (09:07)
[2023-04-20] MEDS: NORVASC 10 MG PO (09:07)
[2023-04-20] MEDS: RISPERDAL M-TAB (ORALLY DISINTEGRATING) 0.5 MG PO ×2 (09:07→22:38)
[2023-04-20] MEDS: SENOKOT 8.59999999999999964 MG PO ×2 (09:07→22:37)
[2023-04-20] MEDS: DESENEX/MITRAZOL/ZEASORB 1 APPLIC TOPICAL ×2 (09:09→22:16)
[2023-04-20] MEDS: LOTRIMIN 1% CREAM 1 APPLIC TOPICAL ×2 (09:14→22:17)
[2023-04-20] MEDS: DUPHALAC/CHRONULAC 20 GRAMS PO ×2 (10:11→22:36)
--- NOTE | 2023-04-20 10:15 | W.PN.HOSP.TC ---
Today's Communication/Plan
-
increase bowel regimen
finish UTI tx
monitor BP
follow up Psych recs
Assessment / Plan
Assessment / Plan
Assessment:
Acute change in mental status
TME of unclear etiology vs psychosis from schizophrenia
- EEG unremarkable
- MRI brain not performed as pt unlikely to tolerate
- hold Klonopin BID; may require prn or HS dose if night-time agitation continues
- Neurology following; follow their recs
- Psych following. Resumed patient back on Risperdal, Trazodone. Depakote resumed by psych. VPA level adequate.
- Wellbutrin/Benztropine on hold. Attempt to obtain records from recent intake at [facility] not successful. Ideally patient could be on Clozaril instead of Risperdal.
- Psych recommends IP psych placement. CM aware.
- continue 1:1/sitter
taylor-sensitive E. Coli UTI
- complete 5 day Rocephin course
Fungal looking rash behind both ears
- continue Lotrimin
Essential HTN
- continue Norvasc/Losartan
- titrate BB higher
- follow BPs
- prn Hydralazine available.
Hypothyroidism
- continue Levothyroxine
Constipation
- continue bowel regimen; add lactulose
DVT ppx: Lovenox
Code: Full
Anticipated Discharge: > 48 hours
Subjective/Interval History
-
Date of Service: April 20, 2023
periods of disorganized thought but overall improving
Objective Data
-
Labs:
Laboratory Results
04/20/23
05:54
WBC 5.0
Hgb 12.8
Hct 38.4
Plt Count 264 D
Sodium 140
Potassium 4.4
Chloride 106
Carbon Dioxide 25
BUN 28 H
Creatinine 0.8
Glucose 90
Calcium 9.5
Vital Signs:
Vital Signs
Temp Pulse Resp BP Pulse Ox
97.8 F 62 16 159/89 95
04/20/23 07:00 04/20/23 07:00 04/20/23 07:00 04/20/23 07:00 04/20/23 07:00
I&O
04/19/23 04/20/23 04/21/23
06:59 06:59 06:59
Intake Total 460 / 460 1560 / 1560
Output Total 400 / 400
Balance 60 / 60 1560 / 1560
Physical Exam
-
General: No Apparent Distress
HEENT: Normocephalic and Atraumatic
Respiratory: Negative Wheezes or Rales
Cardiac: Regular Rhythm and S1/S2
GI: Soft
Genito-urinary: No Costovertebral Tender
Musculoskeletal: No Edema
Neuro: AO x 3
Hematologic / Lymphatic: No Lymphadenopathy
Psych: Calm
Data Reviewed
-
Total Time Spent with Patient (in minutes): 45
Labs: Labs Reviewed by me
--- NOTE | 2023-04-20 11:44 | CM ---
Addendum entered by EDUARDO Parrish 04/20/23 14:46:
Met with attending and attempted to call patient's sister however called x3 and there was no answer and voice mail was full. Attending stated that as patient's sister wants patient closer to [place], calls can be made to facilities in the
[place] area to determine availability, but ultimately, if no facility if available, patient will have to transition back to [facility] and have the SW at the facility work on getting her closer to her home in [place].
Placed a call to the office on [facility] in order to determine if patient would be a level 2 target, however they were closed for the holiday. Will make referrals to facilities in [place].
Original Note:
Psychiatry now indicating SNF not inpatient psych. Will review notes and determine if she is appropriate per PT.
Plan: Case management will continue to follow and assist with discharge planning. Home vrs. SNF.
--- NOTE | 2023-04-20 11:51 | W.PN.UPDATE ---
Update Note
Progress Note Update
Pt seen, reviewed record. Pt alert, sitting up in chair, conversant, answering questions. Pt appears significantly more clear and coherent compared to last week. She denies hallucinations, states she needs the psych meds to prevent paranoia,
denies any delusional thoughts. Pt states she does not want Clozaril, states she tried it in the past and it made her physically sick- had to stop, states it has 'too many risks'. Pt states she was followed by [facility] in
[place], and they placed her in the nursing facility. Pt states her family pulled her out because they didn't like the care she was getting. Pt states she wants to be closer to her sister, talks about preserving her 'quality of life'. Pt taking
medications with no acute side effects apparent; she does have TD. VPA level 89.7 on 04/19. Pt states she has been on Depakote before. She does complain of feeling nervous/anxious and constipated. Pt noted given IV Ativan 2 nights ago for
anxiety/calling out.
Imp: Schizophrenia, stable on medications
altered mental status, improving/resolving
Rec: Pt does not appear to need inpatient psych, especially not for the purpose of initiating Clozaril which she clearly declines based on a reported past trial
Pt appears psychiatrically stable for discharge to outpatient psychiatric follow-up when medically cleared
[2023-04-20] MEDS: STERILE WATER FOR INJECTION 10 ML IV (12:07)
[2023-04-20] MEDS: ROCEPHIN 1000 MG IV (12:08)
[2023-04-20 13:23] VITALS: BMI 33.9
[2023-04-20 15:00] VITALS: BP 112/83
[2023-04-20] MEDS: LOVENOX 40 MG SC (17:46)
[2023-04-20] MEDS: MELATONIN 5 MG PO (22:36)
[2023-04-20] MEDS: DEPAKOTE ER (24 HR RELEASE) 1000 MG PO (22:36)
[2023-04-20] MEDS: DESYREL 50 MG PO (22:41)
[2023-04-20 23:53] VITALS: BP 174/80
[2023-04-21 07:00] VITALS: BP 138/64
[2023-04-21] MEDS: LOTRIMIN 1% CREAM 1 APPLIC TOPICAL ×2 (08:56→20:02)
[2023-04-21] MEDS: NORVASC 10 MG PO (08:56)
[2023-04-21] MEDS: RISPERDAL M-TAB (ORALLY DISINTEGRATING) 0.5 MG PO ×2 (08:56→20:02)
[2023-04-21] MEDS: LOPRESSOR 100 MG PO ×2 (08:56→20:02)
[2023-04-21] MEDS: COZAAR 100 MG PO (08:56)
[2023-04-21] MEDS: SENOKOT 8.59999999999999964 MG PO ×2 (08:56→20:02)
[2023-04-21] MEDS: DUPHALAC/CHRONULAC 20 GRAMS PO (08:56)
[2023-04-21] MEDS: DESENEX/MITRAZOL/ZEASORB 1 APPLIC TOPICAL ×2 (08:57→20:01)
--- NOTE | 2023-04-21 10:46 | CM ---
Addendum entered by EDUARDO Parrish 04/21/23 15:44:
Placed another call to Sofi at the office on aging to determine whether or not she has heard if patient is a level 2 or not. She stated that as of the time of call she has not. Texted attending to make aware as patient needs that determination.
Addendum entered by IRAIDA ParrishW 04/21/23 13:10:
Received a return call from Agatha in admissions at [facility]. and S. who confirmed that she can accept patient. She has bed availability but does need clarification regarding whether patient is a level 2 or not. Will return call as soon as call
is received from Sofi at the office on aging.
Addendum entered by Judith Gamboa [facility] 04/21/23 12:40:
Received return call back from Sofi at the office on aging who stated that she has to explore whether a level 2 was completed. She stated that she would return call as soon as she finds out.
Addendum entered by Judith Gamboa [facility] 04/21/23 12:17:
Received notification from [facility] and S that they are interested and may be able to take her pending clinical. Placed a call to the television program director however had to leave a voice mail message.
Thus far those are the only facilities that can take her, Be expressed that she would be a level 2 but after that they may have a bed.
Placed a call to the office on aging [phone] to confirm whether patient would be a level 2 admission as she was most recently in an [facility] for SNF after pysch placement. Had to leave a message. Will await return call. Provided CM contact
information.
Addendum entered by EDUARDO Parrish 04/21/23 10:59:
Placed a call to Patient's sister who answered and stated that she can briefly talk. Patient's daughter in agreement to facilities faxed. Attending updated.
Original Note:
Reviewed chart, spoke with attending. Referrals have been faxed through [facility] to the following facilities: [facility], [facility], [facility], [facility], [facility], [facility], [facility]. Will await responses.
Plan: Case management will continue to follow and assist with discharge planning. Hopeful transfer to a SNF in [facility]. Patient stable for discharge.
--- NOTE | 2023-04-21 11:08 | W.PN.UPDATE ---
Update Note
Progress Note Update
Patient seem chart reviewed, discussed with staff. was in good spirts this AM however, she did get upset when we started to discuss DC plan. She is happy they are looking into places near her sister but is just worried where she will
go. I calmed her and told her staff is working on it and it will all work out, not to worry too much about it. She seemed less stressed after this reassurance. She denies any AH/VH. She tells me she can be a but cranky at times. No issues with
adjustments made in medications. Sleep was reported as good as is her appetite.
Impression/Plan:� Altered mental status, improving/resolving; Schizophrenia, stable on medications - continue Depakote 100mg HS, Trazodone 50mg HS, and Risperdal 0.5mg BID. Wellbutrin and Klonopin were held on admission with no adverse effects
noted. Would continue to hold, defer to OP provider if this should be continued or restarted in the future. Stable for discharge to outpatient psychiatric follow-up.
--- NOTE | 2023-04-21 12:13 | PTOTSP ---
Dysphagia Therapy
Patient presents with loose fitting dentures resulting in slow mastication of regular solids and oral stage deficits including reduced bolus cohesion and moderate retention of solids, reducing with multiple liquid washes. Bolus cohesion and oral
clearance were functional with minced and moist solids when alternating solids and liquids.
Recommend:
1. IDDSI Level 5 (Minced and Moist) and IDDSI Level 0 (thin liquids)
2. Swallowing precautions: 1:1 assistance/100% supervision, only feed when awake/alert, upright positioning,small single sips/bites, slow rate of intake, alternate solids and liquids to assist with oral clearance
3. Medications - crushed in puree if medically cleared to do so
No further dysphagia therapy is warranted at this time as poor fit of dentures are a barrier to further solid advancement.
[2023-04-21 14:24] VITALS: BP 138/64; PULSE 59; O2SAT 94
[2023-04-21 15:00] VITALS: BP 142/82
--- NOTE | 2023-04-21 15:53 | W.PN.HOSP.TC ---
Today's Communication/Plan
-
Medically stable for SNF placement pending bed/auth. CM aware.
Assessment / Plan
Assessment / Plan
Assessment:
Acute change in mental status
TME of unclear etiology vs psychosis from schizophrenia
- EEG unremarkable. MRI brain not performed as pt unlikely to tolerate. Neurology signed off.
- hold Klonopin BID; may require prn or HS dose if night-time agitation continues
- Psych following. Resumed patient back on Risperdal, Trazodone. Depakote resumed with adequate levels.
- Wellbutrin/Benztropine now stopped.
- initially psych planned for IP Psych placement for Clozaril but patient refusing due to prior intolerance to it in the past.
- continue 1:1/sitter
taylor-sensitive E. Coli UTI
- complete 5 day Rocephin course
Fungal looking rash behind both ears
- continue Lotrimin
Essential HTN
- continue Norvasc/Losartan
- home beta-lisa dose was increased
- follow BPs
- prn Hydralazine available.
Hypothyroidism
- continue Levothyroxine
Constipation
- continue bowel regimen; s/p BM 04/20
DVT ppx: Lovenox
Code: Full
Dispo: Medically stable for dispo to SNF in [place] area closer to family per family preference. CM aware.
Anticipated Discharge: 24 - 48 hours
Subjective/Interval History
-
Date of Service: April 21, 2023
denies any new complaints
Objective Data
-
Vital Signs:
Vital Signs
Temp Pulse Resp BP Pulse Ox
97.9 F 66 16 142/82 99
04/21/23 15:00 04/21/23 15:00 04/21/23 15:00 04/21/23 15:00 04/21/23 15:00
I&O
04/20/23 04/21/23 04/22/23
06:59 06:59 06:59
Intake Total 1560 / 1560 1380 / 1380
Output Total 450 / 450
Balance 1560 / 1560 930 / 930
Physical Exam
-
General: Well Developed and Well Nourished
HEENT: Normocephalic and Atraumatic
Respiratory: Negative Wheezes or Rales
Cardiac: Regular Rhythm and S1/S2
GI: Soft and Nontender
Genito-urinary: No Costovertebral Tender
Musculoskeletal: No Edema
Neuro: AO x 3
Hematologic / Lymphatic: No Lymphadenopathy
Psych: Calm
Data Reviewed
-
Total Time Spent with Patient (in minutes): 45
Labs: Labs Reviewed by me
[2023-04-21] MEDS: LOVENOX 40 MG SC (17:22)
[2023-04-21] MEDS: DEPAKOTE ER (24 HR RELEASE) 1000 MG PO (21:48)
[2023-04-21] MEDS: DESYREL 50 MG PO (21:48)
[2023-04-21] MEDS: MELATONIN 5 MG PO (21:48)
[2023-04-21 23:09] VITALS: BP 172/88
[2023-04-21] MEDS: APRESOLINE 5 MG IV (23:10)
[2023-04-22] VITALS (8 sets, daily range): BP systolic 138–185; BP diastolic 54–91; PULSE 60–64; O2SAT 98–99
--- NOTE | 2023-04-22 04:07 | DOWNTIME ---
There was a [employer] Client Geophysics Teacher Downtime on 04/22/2023 from 0111 to 04/22/2023 at 0405. Downtime documentation of patient's care, including medication administrations, has been reconciled in the electronic record per guidelines. Refer to the
patient's paper chart under the miscellaneous tab to see printed paper medication records and downtime forms.
[2023-04-22] MEDS: SENOKOT 8.59999999999999964 MG PO ×2 (07:58→19:54)
[2023-04-22] MEDS: NORVASC 10 MG PO (07:58)
[2023-04-22] MEDS: RISPERDAL M-TAB (ORALLY DISINTEGRATING) 0.5 MG PO ×2 (07:58→19:54)
[2023-04-22] MEDS: MIRALAX 17 GRAMS PO (07:58)
[2023-04-22] MEDS: LOPRESSOR 100 MG PO ×2 (07:58→19:54)
[2023-04-22] MEDS: COZAAR 100 MG PO (07:58)
[2023-04-22] MEDS: DESENEX/MITRAZOL/ZEASORB 1 APPLIC TOPICAL ×2 (08:01→19:55)
[2023-04-22] MEDS: LOTRIMIN 1% CREAM 1 APPLIC TOPICAL ×2 (08:02→19:55)
--- NOTE | 2023-04-22 10:54 | W.PN.HOSP.TC ---
Today's Communication/Plan
-
Monitor vital signs see plan
DC when has placement, manager case aware
cw psych meds
cw BP meds
hydralazine prn
Assessment / Plan
Assessment / Plan
Assessment:
Acute change in mental status
TME of unclear etiology vs psychosis from schizophrenia
- EEG unremarkable. MRI brain not performed as pt unlikely to tolerate. Neurology signed off.
- hold Klonopin BID; may require prn or HS dose if night-time agitation continues
- Psych following. Resumed patient back on Risperdal, Trazodone. Depakote resumed with adequate levels.
- Wellbutrin/Benztropine now stopped.
- initially psych planned for IP Psych placement for Clozaril but patient refusing due to prior intolerance to it in the past.
- off 1:1
taylor-sensitive E. Coli UTI
- complete 5 day Rocephin course
Fungal looking rash behind both ears
- continue Lotrimin
Essential HTN
- continue Norvasc/Losartan
- home beta-lisa dose was increased
- follow BPs
- prn Hydralazine
Hypothyroidism
- continue Levothyroxine; started 04/22
Constipation
- continue bowel regimen; s/p BM 04/20
DVT ppx: Lovenox
Code: Full
Dispo: Medically stable for dispo to SNF in [place] area closer to family per family preference. CM aware.
General: Well Developed and Well Nourished
HEENT: Normocephalic and Atraumatic
Respiratory: Negative Wheezes or Rales
Cardiac: Regular Rhythm and S1/S2
GI: Soft and Nontender
Musculoskeletal: No Edema
Neuro: AO x 2
Psych: Calm
Anticipated Discharge: Today
Subjective/Interval History
-
Date of Service: April 22, 2023
denies pain
Objective Data
-
Vital Signs:
Vital Signs
Temp Pulse Resp BP Pulse Ox
97.7 F 57 17 165/78 98
04/21/23 23:09 04/22/23 07:00 04/22/23 07:00 04/22/23 07:00 04/22/23 07:00
I&O
04/21/23 04/22/23 04/23/23
06:59 06:59 06:59
Intake Total 1380 / 1380 1800 / 1800
Output Total 450 / 450
Balance 930 / 930 1800 / 1800
--- NOTE | 2023-04-22 11:46 | W.PN.UPDATE ---
Update Note
Progress Note Update
patient seen chart reviewed. discussed w nursing. the patient was very sleepy. she did make an effort to talk w me ...she said she is very very anxious about placement and does not know why it is taking so long. apparently sister told her 'i've been
accepted' and it is unclear to her why she remains here. [place] her sister. i explained to patient about th e ? re level two assessment but that did not really help to allay her fears. noted she kept falling
asleep during her talk. have decreased depakote eto 750 q hs level is 89 and to some depakote can be a sedating medication. will follow
--- NOTE | 2023-04-22 14:29 | CM ---
Addendum entered by EDUARDO Parrish 04/22/23 16:20:
Received return call from Sofi at the [facility] who stated that patient will need a level 2 assessment and requested that the following be faxed to [phone]: MA-51, PASSR, Mental Health Exam, H&P and med list. Will fax.
Original Note:
Placed a call to the office on aging to determine whether it was determined if patient was already optioned. Had to leave a voice mail. Relayed urgency as patient has been here medically cleared for two days thus far.
Plan: Case management will continue to follow and assist with discharge planning. SNF when stable and when clarification can be obtained whether patient needs to have a level two assessment.
[2023-04-22] MEDS: APRESOLINE 5 MG IV (15:50)
[2023-04-22] MEDS: LOVENOX 40 MG SC (17:21)
[2023-04-22] MEDS: DEPAKOTE ER (24 HR RELEASE) 250 MG PO (21:07)
[2023-04-22] MEDS: MELATONIN 5 MG PO (21:07)
[2023-04-22] MEDS: DESYREL 50 MG PO (21:07)
[2023-04-22] MEDS: DEPAKOTE ER (24 HR RELEASE) 500 MG PO (21:07)
[2023-04-23] MEDS: SYNTHROID 50 MCG PO (06:05)
[2023-04-23 07:00] VITALS: BP 150/71
[2023-04-23] MEDS: NORVASC 10 MG PO (07:56)
[2023-04-23] MEDS: SENOKOT 8.59999999999999964 MG PO ×2 (07:56→20:16)
[2023-04-23] MEDS: PROTONIX 40 MG PO (07:56)
[2023-04-23] MEDS: RISPERDAL M-TAB (ORALLY DISINTEGRATING) 0.5 MG PO ×2 (07:56→20:17)
[2023-04-23] MEDS: LOPRESSOR 100 MG PO ×2 (07:56→20:15)
[2023-04-23] MEDS: MIRALAX 17 GRAMS PO (07:56)
[2023-04-23] MEDS: COZAAR 100 MG PO (07:56)
[2023-04-23] MEDS: LOTRIMIN 1% CREAM 1 APPLIC TOPICAL ×2 (08:02→20:19)
[2023-04-23] MEDS: DESENEX/MITRAZOL/ZEASORB 1 APPLIC TOPICAL ×2 (08:02→20:18)
--- NOTE | 2023-04-23 10:27 | W.PN.HOSP.TC ---
Today's Communication/Plan
-
monitor vitals
see plan
psych following
level 2 assessment
Dispo planning
cw BP meds
Assessment / Plan
Assessment / Plan
Assessment:
Acute change in mental status
TME of unclear etiology vs psychosis from schizophrenia
- EEG unremarkable. MRI brain not performed as pt unlikely to tolerate. Neurology signed off.
- hold Klonopin BID; may require prn or HS dose if night-time agitation continues
- Psych following. Resumed patient back on Risperdal, Trazodone. Depakote lowered 04/22
- Wellbutrin/Benztropine now stopped.
- initially psych planned for IP Psych placement for Clozaril but patient refusing due to prior intolerance to it in the past.
- off 1:1
taylor-sensitive E. Coli UTI
- complete 5 day Rocephin course
Fungal looking rash behind both ears
- continue Lotrimin
Essential HTN
- continue Norvasc/Losartan
- home beta-lisa dose was increased
- follow BPs
- prn Hydralazine
Hypothyroidism
- continue Levothyroxine; started 04/22
Constipation
- continue bowel regimen; s/p BM 04/20
DVT ppx: Lovenox
Code: Full
Dispo: Medically stable for dispo to SNF in [place] area closer to family per family preference. CM aware. Level 2 assessment per CM
General: Well Developed and Well Nourished
HEENT: Normocephalic and Atraumatic
Respiratory: Negative Wheezes or Rales
Cardiac: Regular Rhythm and S1/S2
GI: Soft and Nontender
Musculoskeletal: No Edema
Neuro: AO x 2-3
Psych: Calm
Anticipated Discharge: Today
Subjective/Interval History
-
Date of Service: April 23, 2023
denies pain
Objective Data
-
Vital Signs:
Vital Signs
Temp Pulse Resp BP Pulse Ox
97.9 F 60 18 150/71 98
04/23/23 07:00 04/23/23 07:00 04/23/23 07:00 04/23/23 07:00 04/23/23 07:00
I&O
04/22/23 04/23/23 04/24/23
06:59 06:59 06:59
Intake Total 1800 / 1800 960 / 960
Balance 1800 / 1800 960 / 960
--- NOTE | 2023-04-23 11:39 | CM ---
Reviewed chart, attending signed documents for level 2 assessment. Met with patient to discuss. She was able to sign forms for level 2 assessment. Provided explanation to her that the signature is required to help her get closer to her sister. Faxed
all requested documents to the county to initiate assessment made fax attention to Sofi.
Plan: Case management will continue to follow and assist with discharge planning. Transfer to SNF once level 2 is completed.
--- NOTE | 2023-04-23 11:57 | W.PN.UPDATE ---
Update Note
Progress Note Update
patient seen chart reviewed. spoke with nursing. ms lazcano is getting frustrated that she is still here. she has been told she has been 'accepted' and it makes no sense to her( no matter how many times i explain to her about the level two
assessment needing to be done) that she is still here. nursing reports that she gets self worked up and bp elevates. have ordered a prn of ativan for anxiety. hopefully the level two will get done soon. no changes made in meds except to order
prn ativan will follow
[2023-04-23 15:00] VITALS: BP 121/92
[2023-04-23 15:42] VITALS: BP 121/92; PULSE 70; O2SAT 99
[2023-04-23] MEDS: LOVENOX 40 MG SC (17:41)
[2023-04-23] MEDS: MELATONIN 5 MG PO (20:15)
[2023-04-23] MEDS: DEPAKOTE ER (24 HR RELEASE) 250 MG PO (20:15)
[2023-04-23] MEDS: DEPAKOTE ER (24 HR RELEASE) 500 MG PO (20:15)
[2023-04-23] MEDS: DESYREL 50 MG PO (20:16)
[2023-04-23 23:14] VITALS: BP 157/82
[2023-04-24] MEDS: ATIVAN 0.5 MG PO ×2 (06:07→17:25)
[2023-04-24] MEDS: SYNTHROID 50 MCG PO (06:07)
[2023-04-24 07:00] VITALS: BP 174/89
[2023-04-24 08:00] VITALS: BP 165/93
[2023-04-24] MEDS: PROTONIX 40 MG PO (09:00)
[2023-04-24] MEDS: LOPRESSOR 100 MG PO ×2 (09:00→20:59)
[2023-04-24] MEDS: COZAAR 100 MG PO (09:00)
[2023-04-24] MEDS: SENOKOT 8.59999999999999964 MG PO ×2 (09:01→21:05)
[2023-04-24] MEDS: NORVASC 10 MG PO (09:01)
[2023-04-24] MEDS: MIRALAX 17 GRAMS PO (09:01)
[2023-04-24] MEDS: RISPERDAL M-TAB (ORALLY DISINTEGRATING) 0.5 MG PO ×2 (09:01→20:57)
[2023-04-24] MEDS: DESENEX/MITRAZOL/ZEASORB 1 APPLIC TOPICAL ×2 (09:02→21:06)
[2023-04-24] MEDS: LOTRIMIN 1% CREAM 1 APPLIC TOPICAL ×2 (09:02→21:07)
--- NOTE | 2023-04-24 09:49 | W.PN.UPDATE ---
Update Note
Progress Note Update
patient seen chart reviewed. patient continues to be disappointed that she has not yet been discharged. despite explaining repeatedly to her she cannot comprehend why she is still here. we continue to await the level two assessment which now is
supposed to take place on the . noted she has a prn for ativan used this am. she was sleepy when i saw her. no changes were made in her psych meds psych will check in with her once over the weekend and early next week
--- NOTE | 2023-04-24 10:04 | W.PN.HOSP.TC ---
Today's Communication/Plan
-
Monitor vital signs and see plan
Level 2 pending
Awaiting SNF
Assessment / Plan
Assessment / Plan
Assessment:
Acute change in mental status
TME of unclear etiology vs psychosis from schizophrenia
- EEG unremarkable. MRI brain not performed as pt unlikely to tolerate. Neurology signed off.
- hold Klonopin BID; may require prn or HS dose if night-time agitation continues, now on Ativan as needed
- Psych following. Resumed patient back on Risperdal, Trazodone. Depakote lowered 04/22
- Wellbutrin/Benztropine now stopped.
- initially psych planned for IP Psych placement for Clozaril but patient refusing due to prior intolerance to it in the past.
- off 1:1
taylor-sensitive E. Coli UTI
- complete 5 day Rocephin course
Fungal looking rash behind both ears
- continue Lotrimin
Essential HTN
- continue Norvasc/Losartan
- home beta-lisa dose was increased
- follow BPs
- prn Hydralazine
Hypothyroidism
- continue Levothyroxine; started 04/22
Constipation
- continue bowel regimen; s/p BM 04/20
DVT ppx: Lovenox
Code: Full
Dispo: Medically stable for dispo to SNF in [place] area closer to family per family preference. CM aware. Level 2 assessment per CM
General: Well Developed and Well Nourished
Respiratory: Negative Wheezes or Rales
Cardiac: Regular Rhythm and S1/S2
GI: Soft and Nontender
Musculoskeletal: No Edema
Neuro: AO x 2-3
Psych: Calm
Anticipated Discharge: 24 - 48 hours
Subjective/Interval History
-
Date of Service: April 24, 2023
denies pain
Objective Data
-
Vital Signs:
Vital Signs
Temp Pulse Resp BP Pulse Ox
97.7 F 68 17 165/93 96
04/23/23 23:14 04/24/23 08:00 04/24/23 07:00 04/24/23 08:00 04/24/23 07:00
I&O
04/23/23 04/24/23 04/25/23
06:59 06:59 06:59
Intake Total 960 / 960 1380 / 1380
Balance 960 / 960 1380 / 1380
[2023-04-24 10:30] VITALS: BP 146/72
--- NOTE | 2023-04-24 10:57 | CM ---
Addendum entered by EDUARDO Parrish 04/24/23 15:23:
Received return call back from Chika at the [facility] who went through PASSR and MA-51 with CM to ensure that it is completed correctly. Patient needed to sign one more page. Met with patient who was agreeable to signing form. Faxed level 2 request
to [phone].
Addendum entered by EDUARDO Parrish 04/24/23 12:16:
Refaxed all requested documents to the [facility]. Will confirm receipt.
Original Note:
Placed a call to the [facility] and spoke with Sofi who stated that they need more information on the PASSR, The entire MA-51 to be completed, not just the information that they asked for attached in separate documents and for a complete psych eval not
just updated notes. Spoke with Dr. Reed to update that Sofi from [facility] asking for 'full psych' evaluation. Will fax documents that are in [employer] from all Psychiatrists.
Placed a call to [facility] and spoke with Sharmin, the director of research and development who confirmed acceptance for patient once the level 2 assessment is complete.
Plan: Case management will continue to follow and assist with discharge planning. Skilled rehab upon clearance from the [facility].
[2023-04-24 15:00] VITALS: BP 160/74
--- NOTE | 2023-04-24 16:35 | CM ---
Received notification from RN that patient's family, sister Lucila, wanted an update. Placed a call to Lucila who answered and stated that she could talk. Advised her of bed availability at [place] and she requested that [facility] also be faxed.
Will fax referral to them as well to determine their availability. Ultimately, patient's sister stated that she will be agreeable to whatever facility can take her.
Plan: Case management will continue to follow and assist with discharge planning. SNF when county assessment is complete.
[2023-04-24] MEDS: LOVENOX 40 MG SC (17:25)
[2023-04-24] MEDS: MELATONIN 5 MG PO (20:58)
[2023-04-24] MEDS: DEPAKOTE ER (24 HR RELEASE) 500 MG PO (20:59)
[2023-04-24] MEDS: DESYREL 50 MG PO (21:05)
[2023-04-24] MEDS: DEPAKOTE ER (24 HR RELEASE) 250 MG PO (21:05)
[2023-04-24 23:00] VITALS: BP 108/68
[2023-04-25] MEDS: SYNTHROID 50 MCG PO (06:09)
[2023-04-25 07:00] VITALS: BP 127/64
[2023-04-25] MEDS: RISPERDAL M-TAB (ORALLY DISINTEGRATING) 0.5 MG PO ×2 (08:06→19:44)
[2023-04-25] MEDS: SENOKOT 8.59999999999999964 MG PO ×2 (08:07→19:44)
[2023-04-25] MEDS: PROTONIX 40 MG PO (08:07)
[2023-04-25] MEDS: MIRALAX 17 GRAMS PO (08:07)
[2023-04-25] MEDS: NORVASC 10 MG PO (08:08)
[2023-04-25] MEDS: COZAAR 100 MG PO (08:08)
[2023-04-25] MEDS: LOTRIMIN 1% CREAM 1 APPLIC TOPICAL ×2 (08:08→19:42)
[2023-04-25] MEDS: LOPRESSOR PO (08:09)
[2023-04-25] MEDS: DESENEX/MITRAZOL/ZEASORB 1 APPLIC TOPICAL ×2 (08:09→19:42)
--- NOTE | 2023-04-25 09:51 | W.PN.HOSP.TC ---
Today's Communication/Plan
-
.
Assessment / Plan
Assessment / Plan
Physical exam:
General: Well Developed and Well Nourished
Respiratory: Negative Wheezes or Rales
Cardiac: Regular Rhythm and S1/S2
GI: Soft and Nontender
GI no Vargas
Musculoskeletal: No Edema
Neuro: AO x 2-3
Psych: Calm, no agitation noted this morning.
Acute change in mental status
TME seems to resolve and back to baseline.
Hx of Schizophrenia
- EEG unremarkable. MRI brain not performed as pt unlikely to tolerate. Neurology signed off.
- hold Klonopin BID; Ativan PRN. - Psych following. Resumed patient back on Risperdal, Trazodone. Depakote lowered 04/22 750 MG HS
- Wellbutrin/Benztropine now stopped.
- initially psych planned for IP Psych placement for Clozaril but patient refusing due to prior intolerance to it in the past.
- off 1:1. She denies suicidal thoughts.
taylor-sensitive E. Coli UTI
- complete 5 day Rocephin course
Fungal looking rash behind both ears
- continue Lotrimin
Essential HTN
- continue Norvasc/Losartan
- home beta-lisa dose was increased
- follow BPs
- prn Hydralazine
Hypothyroidism
- continue Levothyroxine; started 04/22
Constipation
- continue bowel regimen; s/p BM 04/20
DVT ppx: Lovenox
Code: Full
Dispo: Medically stable for dispo to SNF in [place] area closer to family per family preference. CM aware. Level 2 assessment per CM
Total time spent to see the patient, examine the patient on the floor, review data and lab results, discuss treatment plan with patient, nursing staff around 45 minutes
Anticipated Discharge: 24 - 48 hours
Subjective/Interval History
-
Date of Service: April 25, 2023
Patient denies chest pain or sob or abd pain
No fevers
Objective Data
-
Vital Signs:
Vital Signs
Temp Pulse Resp BP Pulse Ox
98.5 F 55 16 127/64 98
04/25/23 07:00 04/25/23 08:09 04/25/23 07:00 04/25/23 08:08 04/25/23 09:38
I&O
04/24/23 04/25/23 04/26/23
06:59 06:59 06:59
Intake Total 1380 / 1380 1560 / 1560
Balance 1380 / 1380 1560 / 1560
[2023-04-25] MEDS: ATIVAN 0.5 MG PO (10:06)
--- NOTE | 2023-04-25 11:38 | W.PN.UPDATE ---
Update Note
Progress Note Update
Pt seen, reviewed with nursing staff. Pt reportedly had an episode of tearfulness, improved with prn Ativan. Pt resting in bed, alert, calm, talking about wish to be near her sister/family and possibly go back to '[employer]' program. Depakote was
tapered to 750 mg HS on 04/22. No signs of active psychosis.
Imp: Schizophrenia, stable on medications
�� � � altered mental status on admission, resolved
Rec:� Pt does not appear to need inpatient psych, declines re-trial of Clozaril
Will recheck Depakote level
� � � Pt appears psychiatrically stable for discharge to outpatient psychiatric follow-up when medically cleared/ appropriate placement found
[2023-04-25 16:16] VITALS: BP 126/80
[2023-04-25] MEDS: LOVENOX 40 MG SC (17:13)
[2023-04-25] MEDS: LOPRESSOR 100 MG PO (19:43)
[2023-04-25] MEDS: MELATONIN 5 MG PO (21:57)
[2023-04-25] MEDS: DEPAKOTE ER (24 HR RELEASE) 250 MG PO (21:57)
[2023-04-25] MEDS: DEPAKOTE ER (24 HR RELEASE) 500 MG PO (21:57)
[2023-04-25] MEDS: DESYREL 50 MG PO (21:57)
[2023-04-25 22:55] VITALS: BP 135/84
[2023-04-26] MEDS: SYNTHROID 50 MCG PO (06:19)
[2023-04-26 07:18] LABS: Depakane 82.9 ug/ml (50.0-120.0)
[2023-04-26 07:54] VITALS: BP 134/65
[2023-04-26] MEDS: PROTONIX 40 MG PO (08:11)
[2023-04-26] MEDS: SENOKOT 8.59999999999999964 MG PO ×2 (08:11→20:41)
[2023-04-26] MEDS: RISPERDAL M-TAB (ORALLY DISINTEGRATING) 0.5 MG PO ×2 (08:11→20:41)
[2023-04-26] MEDS: DESENEX/MITRAZOL/ZEASORB 1 APPLIC TOPICAL ×2 (08:13→20:42)
[2023-04-26] MEDS: LOPRESSOR 100 MG PO ×2 (08:14→20:40)
[2023-04-26] MEDS: LOTRIMIN 1% CREAM 1 APPLIC TOPICAL ×2 (08:14→20:42)
[2023-04-26] MEDS: MIRALAX 17 GRAMS PO (08:15)
[2023-04-26] MEDS: COZAAR 100 MG PO (08:15)
[2023-04-26] MEDS: NORVASC 10 MG PO (08:15)
--- NOTE | 2023-04-26 10:25 | W.PN.HOSP.TC ---
Today's Communication/Plan
-
dc planning
Assessment / Plan
Assessment / Plan
Physical exam:
General: Well Developed and Well Nourished
Respiratory: Negative Wheezes or Rales
Cardiac: Regular Rhythm and S1/S2
GI: Soft and Nontender
GI no Vargas
Musculoskeletal: No Edema
Neuro: AO x 2-3
Psych: Calm, no agitation noted this morning.
Acute change in mental status
TME seems to resolve and back to baseline.
Hx of Schizophrenia
- EEG unremarkable. MRI brain not performed as pt unlikely to tolerate. Neurology signed off.
- hold Klonopin BID; Ativan PRN. - Psych following. Resumed patient back on Risperdal, Trazodone. Depakote lowered 04/22 750 MG HS
- Wellbutrin/Benztropine now stopped.
- initially psych planned for IP Psych placement for Clozaril but patient refusing due to prior intolerance to it in the past.
- off 1:1. She denies suicidal thoughts.
taylor-sensitive E. Coli UTI
- complete 5 day Rocephin course
Fungal looking rash behind both ears
- continue Lotrimin
Essential HTN
- continue Norvasc/Losartan
- home beta-lisa dose was increased
- follow BPs
- prn Hydralazine
Hypothyroidism
- continue Levothyroxine; started 04/22
Constipation
- continue bowel regimen; s/p BM 04/20
DVT ppx: Lovenox
Code: Full
Dispo: Medically stable for dispo to SNF in [place] area closer to family per family preference. CM aware. Level 2 assessment per CM
Total time spent to see the patient, examine the patient on the floor, review data and lab results, discuss treatment plan with patient, nursing staff around 45 minutes
Anticipated Discharge: Today
Subjective/Interval History
-
Date of Service: April 26, 2023
No chest pain
No sob
Objective Data
-
Vital Signs:
Vital Signs
Temp Pulse Resp BP Pulse Ox
98.7 F 68 16 139/76 97
04/26/23 07:54 04/26/23 08:15 04/26/23 07:54 04/26/23 08:15 04/26/23 07:54
I&O
04/25/23 04/26/23 04/27/23
06:59 06:59 06:59
Intake Total 1560 / 1560 880 / 880
Balance 1560 / 1560 880 / 880
--- NOTE | 2023-04-26 12:07 | W.PN.UPDATE ---
Update Note
Progress Note Update
Pt seen reviewed with nursing staff. Pt c/o feeling 'tired' and 'worrying' about her placement problems, would prefer not to got to a nursing facility, but knows her family can't afford to take her in or house her, also states she does not want to
live alone. Pt becomes anxious and tearful talking about her situation. Overall, mental status improved from admission, alert with sensorium intact; no signs of active psychosis. Pt compliant with medications, with no apparent side effects. VPA
level today 82.9; Depakote ER dose was tapered to 750 mg HS on 04/22/23.
Imp:� Schizophrenia, stable on medications
�� � � altered mental status on admission, resolved
Rec:� Pt does not appear to need inpatient psych, declines re-trial of Clozaril
� � �Pt appears psychiatrically stable for discharge to outpatient psychiatric follow-up when medically cleared/ appropriate placement found
[2023-04-26 15:00] VITALS: BP 117/80
[2023-04-26] MEDS: ATIVAN 0.5 MG PO (16:32)
[2023-04-26] MEDS: LOVENOX 40 MG SC (17:23)
[2023-04-26] MEDS: DEPAKOTE ER (24 HR RELEASE) 500 MG PO (22:16)
[2023-04-26] MEDS: DESYREL 50 MG PO (22:18)
[2023-04-26] MEDS: DEPAKOTE ER (24 HR RELEASE) 250 MG PO (22:18)
[2023-04-26] MEDS: MELATONIN 5 MG PO (22:18)
[2023-04-27 00:14] VITALS: BP 153/79
[2023-04-27] MEDS: SYNTHROID 50 MCG PO (05:59)
[2023-04-27] MEDS: ATIVAN 0.5 MG PO ×2 (06:40→17:17)
[2023-04-27 07:41] VITALS: BP 166/95
[2023-04-27] MEDS: RISPERDAL M-TAB (ORALLY DISINTEGRATING) 0.5 MG PO ×2 (07:48→20:05)
[2023-04-27] MEDS: LOTRIMIN 1% CREAM 1 APPLIC TOPICAL ×2 (07:48→20:04)
[2023-04-27] MEDS: NORVASC 10 MG PO (07:48)
[2023-04-27] MEDS: PROTONIX 40 MG PO (07:48)
[2023-04-27] MEDS: LOPRESSOR 100 MG PO ×2 (07:48→20:04)
[2023-04-27] MEDS: COZAAR 100 MG PO (07:48)
[2023-04-27] MEDS: SENOKOT 8.59999999999999964 MG PO ×2 (07:48→20:05)
[2023-04-27] MEDS: MIRALAX 17 GRAMS PO (07:49)
[2023-04-27] MEDS: DESENEX/MITRAZOL/ZEASORB 1 APPLIC TOPICAL ×2 (07:49→20:05)
[2023-04-27 10:00] VITALS: BP 150/82
--- NOTE | 2023-04-27 13:17 | CM ---
Placed a call to Chika at the [facility] office on aging. She answered and just stated that the MA-51 has to be signed by either CM or attending and once that is faxed over, Franny from the [facility] will call and make an appointment to complete
assessment. Signed and faxed MA-51. Will call the county again if Franny does not call by mid week.
Plan: Case management will continue to follow and assist with discharge planning. Patient has bed at [facility] upon clearance from the [facility].
--- NOTE | 2023-04-27 13:19 | W.PN.HOSP.TC ---
Today's Communication/Plan
-
await placement
Assessment / Plan
Assessment / Plan
Assessment:
Acute change in mental status
TME seems to resolve and back to baseline.
Hx of Schizophrenia
- EEG unremarkable. MRI brain not performed as pt unlikely to tolerate. Neurology signed off.
- hold Klonopin BID; Ativan PRN. - Psych following. Resumed patient back on Risperdal, Trazodone. Depakote lowered 04/22 750 MG HS
- Wellbutrin/Benztropine now stopped.
- initially psych planned for IP Psych placement for Clozaril but patient refusing due to prior intolerance to it in the past.
- off 1:1. She denies suicidal thoughts.
taylor-sensitive E. Coli UTI
- complete 5 day Rocephin course
Fungal looking rash behind both ears
- continue Lotrimin
Essential HTN
- continue Norvasc/Losartan
- home beta-lisa dose was increased
- follow BPs
- prn Hydralazine
Hypothyroidism
- continue Levothyroxine
Constipation
- continue bowel regimen; s/p BM 04/24
DVT ppx: Lovenox
Code: Full
Dispo: Medically stable for disposition to SNF in [place] area closer to family per family preference. CM aware. Level 2 assessment per CM
Anticipated Discharge: > 48 hours
Subjective/Interval History
-
Date of Service: April 27, 2023
no new events overnight
Objective Data
-
Vital Signs:
Vital Signs
Temp Pulse Resp BP Pulse Ox
97.8 F 61 16 150/82 94
04/27/23 07:41 04/27/23 07:48 04/27/23 07:41 04/27/23 10:00 04/27/23 07:41
I&O
04/26/23 04/27/2304/28/24
06:59 06:59 06:59
Intake Total 880 / 880 1310 / 1310
Balance 880 / 880 1310 / 1310
Physical Exam
-
General: No Apparent Distress
HEENT: Normocephalic and Atraumatic
Respiratory: Negative Wheezes or Rales
Cardiac: Regular Rhythm and S1/S2
GI: Soft and Nontender
Neuro: AO x 3
Hematologic / Lymphatic: No Lymphadenopathy
Psych: Calm
Data Reviewed
-
Total Time Spent with Patient (in minutes): 47
Labs: Labs Reviewed by me
[2023-04-27 15:34] VITALS: BP 139/73
[2023-04-27] MEDS: LOVENOX 40 MG SC (17:07)
[2023-04-27 20:17] VITALS: BP 145/102
[2023-04-27] MEDS: MELATONIN 5 MG PO (21:52)
[2023-04-27] MEDS: DEPAKOTE ER (24 HR RELEASE) 250 MG PO (21:52)
[2023-04-27] MEDS: DEPAKOTE ER (24 HR RELEASE) 500 MG PO (21:52)
[2023-04-27] MEDS: DESYREL 50 MG PO (21:52)
[2023-04-27 23:00] VITALS: BP 127/56
[2023-04-28] MEDS: SYNTHROID 50 MCG PO (06:07)
[2023-04-28 08:00] VITALS: BP 113/69
[2023-04-28] MEDS: MIRALAX 17 GRAMS PO (08:05)
[2023-04-28] MEDS: LOTRIMIN 1% CREAM 1 APPLIC TOPICAL ×2 (08:06→21:35)
[2023-04-28] MEDS: PROTONIX 40 MG PO (08:07)
[2023-04-28] MEDS: RISPERDAL M-TAB (ORALLY DISINTEGRATING) 0.5 MG PO ×2 (08:07→21:50)
[2023-04-28] MEDS: SENOKOT 8.59999999999999964 MG PO ×2 (08:07→21:41)
[2023-04-28] MEDS: DESENEX/MITRAZOL/ZEASORB 1 APPLIC TOPICAL ×2 (08:08→21:34)
[2023-04-28] MEDS: LOPRESSOR 100 MG PO ×2 (08:18→21:40)
[2023-04-28] MEDS: COZAAR 100 MG PO (08:19)
[2023-04-28] MEDS: NORVASC 10 MG PO (08:19)
--- NOTE | 2023-04-28 11:06 | W.PN.UPDATE ---
Update Note
Progress Note Update
Patient seen at bedside, chart reviewed, discussed with staff. Area of Aging with patient this AM for Level 2 assessment. Ms. Cid remains concerned regarding her placement. She would like to return to a long-term however, this may not be
feasible related to her physical needs. She tells us how horrible [place]. She denies any SI/SB, AH/VH. She has been fairly stable psychiatrically while here in the hospital. She does continue to have anxiety related to the unknown for discharge
planning. Ativan PRN was added and has been helpful. Depakote dose was adjusted with no issues or concerns noted.
Impression/Plan:� Altered mental status, resolving; Schizophrenia, stable on medications - continue Depakote 750mg HS (decreased from 1000mg), Trazodone 50mg HS, and Risperdal 0.5mg BID. Wellbutrin was held on admission with no adverse effects
noted. Would continue to hold. Ativan 0.5mg q8hr PRN for anxiety initiated. Declines Clozaril. Stable for discharge to outpatient psychiatric follow-up.
[2023-04-28 11:23] VITALS: BP 157/78
[2023-04-28 11:29] VITALS: BP 157/78
--- NOTE | 2023-04-28 13:01 | CM ---
Received call from Laila Arnold from office on aging who stated that she met with patient and she is recommending SNF as well. She stated that she will send her clinical and CMs along to the [facility] for the ultimate review and when patient is
cleared she will call. Will await return call.
Plan: Case management will continue to follow and assist with discharge planning/hopeful transfer soon to [facility].
[2023-04-28 15:00] VITALS: BP 127/83
--- NOTE | 2023-04-28 15:02 | W.PN.HOSP.TC ---
Today's Communication/Plan
-
dispo planning
Assessment / Plan
Assessment / Plan
Assessment:
Acute change in mental status
TME seems to resolve and back to baseline.
Hx of Schizophrenia
- EEG unremarkable. MRI brain not performed as pt unlikely to tolerate. Neurology signed off.
- hold Klonopin BID; Ativan PRN. - Psych following. Resumed patient back on Risperdal, Trazodone. Depakote lowered 04/22 750 MG HS
- Wellbutrin/Benztropine now stopped.
- initially psych planned for IP Psych placement for Clozaril but patient refusing due to prior intolerance to it in the past.
- off 1:1. She denies suicidal thoughts.
taylor-sensitive E. Coli UTI
- completed 5 day Rocephin course
Fungal looking rash behind both ears
- continue Lotrimin
Essential HTN
currently well controlled with BP 129/63 most recently
- continue Norvasc/Losartan
- home beta-lisa dose was increased
- follow BPs
- prn Hydralazine
Hypothyroidism
- continue Levothyroxine
Constipation
- continue bowel regimen; s/p BM 04/24
DVT ppx: Lovenox
Code: Full
Dispo: Medically stable for disposition to SNF in [place] area closer to family per family preference. CM aware. Level 2 assessment per CM. Reviewed with CM at this time
Anticipated Discharge: 24 - 48 hours
Subjective/Interval History
-
Date of Service: April 28, 2023
Sitting in chair, very anxious, but much more alert than when seen by me on admission
Objective Data
-
Vital Signs:
Vital Signs
Temp Pulse Resp BP Pulse Ox
97.5 F 65 14 129/63 96
04/28/23 08:00 04/28/23 08:18 04/28/23 08:00 04/28/23 08:18 04/28/23 08:00
I&O
04/27/23 04/28/23 04/29/23
06:59 06:59 06:59
Intake Total 1310 / 1310 1140 / 1140
Balance 1310 / 1310 1140 / 1140
Review of Systems
-
History Source: Coordinated Provider
Constitutional: Reports No Symptoms; Denies Fever
Respiratory: Reports No Symptoms
Cardiac: Reports No Symptoms
Physical Exam
-
General: No Apparent Distress
HEENT: Normocephalic and Atraumatic
Respiratory: Negative Wheezes or Rales
Cardiac: Regular Rhythm and S1/S2
GI: Soft and Nontender
Neuro: AO x 3
Hematologic / Lymphatic: No Lymphadenopathy
Psych: Calm
--- NOTE | 2023-04-28 15:56 | CM ---
Sent referral to [facility] as patient's sister requested.
Plan: Case management will continue to follow and assist with discharge planning/[facility] if able to accept.
[2023-04-28] MEDS: LOVENOX 40 MG SC (17:24)
[2023-04-28] MEDS: MELATONIN 5 MG PO (21:40)
[2023-04-28] MEDS: DEPAKOTE ER (24 HR RELEASE) 250 MG PO (21:41)
[2023-04-28] MEDS: DEPAKOTE ER (24 HR RELEASE) 500 MG PO (21:41)
[2023-04-28] MEDS: DESYREL 50 MG PO (21:42)
[2023-04-28 23:45] VITALS: BP 157/78
[2023-04-29] MEDS: ATIVAN 0.5 MG PO ×2 (02:26→17:10)
--- NOTE | 2023-04-29 03:21 | PTCARENOTE ---
@0225;Pt anxious,tearful,calling out and verbalizing concern over where she is going.Pt stated, ' I forgot to tell the doctor how depressed I am.'Ativan 0.5mg po administered.
[2023-04-29 07:20] VITALS: BP 132/58
[2023-04-29] MEDS: SYNTHROID 50 MCG PO (07:50)
[2023-04-29] MEDS: LOPRESSOR 100 MG PO ×2 (09:25→20:00)
[2023-04-29] MEDS: NORVASC 10 MG PO (09:25)
[2023-04-29] MEDS: RISPERDAL M-TAB (ORALLY DISINTEGRATING) 0.5 MG PO ×2 (09:26→12:38)
[2023-04-29] MEDS: DESENEX/MITRAZOL/ZEASORB 1 APPLIC TOPICAL ×2 (09:26→20:01)
[2023-04-29] MEDS: SENOKOT 8.59999999999999964 MG PO ×2 (09:26→19:54)
[2023-04-29] MEDS: COZAAR 100 MG PO (09:26)
[2023-04-29] MEDS: PROTONIX 40 MG PO (09:26)
[2023-04-29] MEDS: LOTRIMIN 1% CREAM 1 APPLIC TOPICAL ×2 (09:27→20:02)
[2023-04-29] MEDS: MIRALAX 17 GRAMS PO (09:28)
--- NOTE | 2023-04-29 11:26 | W.PN.UPDATE ---
Update Note
Progress Note Update
patient seen chart reviewed. spoke with nursing, adult protective caseworker, and dr bunch. ms soto is quite out of sorts today. she talked nonstop about her mother and her father as though they were alive. she was paranoid insisted that staff was being 'mean
to her' and she was in danger. she did know that she was at but also told me it was 2013 although she got the day right by looking at the bulletin board on which the date was written. she is insisting she does not want to go to snf but really
is not appropriate at this point for long-term as she cannot ambulate well and needs a lot of assist. will increase risperdal to one mg bid. depakote level is in the 80's at this point. have added a very small dose of ativan bid o.25 mg bid and
will reassess in the am. spoke with cm about finding a snf in [facility]. she was approved for tn as level two done yesterday. will follow .
--- NOTE | 2023-04-29 11:40 | W.PN.HOSP.TC ---
Today's Communication/Plan
-
psych med adjustments per psych service
awaiting SNF placement
Assessment / Plan
Assessment / Plan
Assessment:
Acute change in mental status
TME seems to resolve and back to baseline.
Hx of Schizophrenia
- EEG unremarkable. MRI brain not performed as pt unlikely to tolerate. Neurology signed off.
- on 04/29; psych started low dose Ativan for anxiety (previously was on Klonopin)
- continue Risperdal, Trazodone. Depakote
- SQL REPORT ANALYST Wellbutrin/Benztropine now stopped.
- initially psych planned for IP Psych placement for Clozaril but patient refusing due to prior intolerance to it in the past.
- off 1:1. She denies suicidal thoughts.
taylor-sensitive E. Coli UTI
- completed 5 day Rocephin course
Fungal looking rash behind both ears
- continue Lotrimin
Essential HTN
- continue Norvasc/Losartan
- home beta-lisa dose was increased
- follow BPs
- prn Hydralazine
Hypothyroidism
- continue Levothyroxine
Constipation
- continue bowel regimen; s/p BM 04/24
DVT ppx: Lovenox
Code: Full
Dispo: Medically stable for disposition to SNF in [place] area closer to family per family preference. CM aware. Level 2 assessment per CM. Reviewed with CM at this time
Anticipated Discharge: 24 - 48 hours
Subjective/Interval History
-
Date of Service: April 29, 2023
more paranoid, anxious today about her dc plan
Objective Data
-
Vital Signs:
Vital Signs
Temp Pulse Resp BP Pulse Ox
97.9 F 60 16 132/58 97
04/29/23 07:20 04/29/23 09:25 04/29/23 07:20 04/29/23 09:25 04/29/23 07:20
I&O
04/28/23 04/29/23 04/30/23
06:59 06:59 06:59
Intake Total 1140 / 1140 1020 / 1020
Balance 1140 / 1140 1020 / 1020
Physical Exam
-
General: No Apparent Distress
HEENT: Normocephalic and Atraumatic
Respiratory: Negative Wheezes
Cardiac: Regular Rhythm and S1/S2
GI: Soft
Neuro: Awake
Psych: Calm and Anxious
Data Reviewed
-
Total Time Spent with Patient (in minutes): 42
Labs: Labs Reviewed by me
[2023-04-29 15:00] VITALS: BP 108/58
--- NOTE | 2023-04-29 15:37 | CM ---
Placed a call to the office on aging and spoke with a woman named Nida who confirmed receipt of fax by Franny. She stated that someone will call back to schedule the level two assessment.
Plan: Case management will continue to follow and assist with discharge planning. Will await county assessment.
--- NOTE | 2023-04-29 15:42 | CM ---
Addendum entered by EDUARDO Parrish 04/29/23 16:40:
Received message back from [facility] that [facility] are not able to accept patient. Will update patient's sister.
Original Note:
Placed a call to office on aging and was advised that Level 2 assessment is now being reviewed by the state. Will await determination.
Plan: Case management will continue to follow and assist with discharge planning. SNF when Passr process completed.
[2023-04-29] MEDS: LOVENOX 40 MG SC (17:09)
[2023-04-29] MEDS: ATIVAN 0.25 MG PO (19:52)
[2023-04-29] MEDS: RISPERDAL M-TAB (ORALLY DISINTEGRATING) 1 MG PO (19:58)
[2023-04-29] MEDS: DEPAKOTE ER (24 HR RELEASE) 500 MG PO (21:47)
[2023-04-29] MEDS: MELATONIN 5 MG PO (21:47)
[2023-04-29] MEDS: DESYREL 50 MG PO (21:47)
[2023-04-29] MEDS: DEPAKOTE ER (24 HR RELEASE) 250 MG PO (21:47)
[2023-04-29 23:00] VITALS: BP 120/62
[2023-04-30] MEDS: SYNTHROID 50 MCG PO (06:19)
--- NOTE | 2023-04-30 07:12 | PTCARENOTE ---
Patient arrived on unit @2150 via stretcher from ED, ambulate from stretcher to bed. Patient AAOx3 with occasional non productive cough, LITERATURE PROFESSOR made aware, prn order for jesi love received. Patient's skin assessment completed, oriented to unit,
call burciaga within reach.
[2023-04-30 07:27] VITALS: BP 112/57
[2023-04-30] MEDS: PROTONIX 40 MG PO (08:52)
[2023-04-30] MEDS: ATIVAN 0.25 MG PO ×2 (08:53→20:07)
[2023-04-30] MEDS: NORVASC 10 MG PO (08:53)
[2023-04-30] MEDS: SENOKOT 8.59999999999999964 MG PO ×2 (08:54→20:10)
[2023-04-30] MEDS: RISPERDAL M-TAB (ORALLY DISINTEGRATING) 1 MG PO ×2 (08:54→20:12)
[2023-04-30] MEDS: LOTRIMIN 1% CREAM 1 APPLIC TOPICAL ×2 (08:55→20:10)
[2023-04-30] MEDS: MIRALAX 17 GRAMS PO (08:55)
[2023-04-30] MEDS: LOPRESSOR PO (08:57)
[2023-04-30] MEDS: COZAAR PO (08:57)
[2023-04-30] MEDS: DESENEX/MITRAZOL/ZEASORB 1 APPLIC TOPICAL ×2 (08:59→20:11)
--- NOTE | 2023-04-30 11:19 | W.PN.HOSP.TC ---
Today's Communication/Plan
-
awaiting placement
Assessment / Plan
Assessment / Plan
Assessment:
Acute change in mental status
TME seems to resolve and back to baseline.
Hx of Schizophrenia
- EEG unremarkable. MRI brain not performed as pt unlikely to tolerate. Neurology signed off.
- on 04/29; psych started low dose Ativan for anxiety (previously was on Klonopin)
- continue Risperdal, Trazodone. Depakote
- INTEGRATED MARKETING MANAGER Wellbutrin/Benztropine now stopped.
- initially psych planned for IP Psych placement for Clozaril but patient refusing due to prior intolerance to it in the past.
- off 1:1. She denies suicidal thoughts.
taylor-sensitive E. Coli UTI
- completed 5 day Rocephin course
Fungal looking rash behind both ears
- continue Lotrimin
Essential HTN
- continue Norvasc/Losartan
- home beta-lisa dose was increased
- follow BPs
- prn Hydralazine
Hypothyroidism
- continue Levothyroxine
Constipation
- continue bowel regimen; s/p BM 04/24
DVT ppx: Lovenox
Code: Full
Dispo: Medically stable for disposition to SNF in [place] area closer to family per family preference. CM aware. Level 2 assessment per CM. Reviewed with CM at this time
Anticipated Discharge: 24 - 48 hours
Subjective/Interval History
-
Date of Service: April 30, 2023
no new complaints presently
Objective Data
-
Vital Signs:
Vital Signs
Temp Pulse Resp BP Pulse Ox
97.6 F 53 17 112/57 95
04/30/23 07:27 04/30/23 08:57 04/30/23 07:27 04/30/23 08:57 04/30/23 09:48
I&O
04/29/23 04/30/23 05/01/23
06:59 06:59 06:59
Intake Total 1020 / 1020 900 / 900
Balance 1020 / 1020 900 / 900
Physical Exam
-
General: No Apparent Distress
HEENT: Normocephalic and Atraumatic
Respiratory: Negative Wheezes or Rales
Cardiac: Regular Rhythm and S1/S2
GI: Soft and Nontender
Genito-urinary: No Costovertebral Tender
Musculoskeletal: No Edema
Neuro: AO x 3
Hematologic / Lymphatic: No Lymphadenopathy
Psych: Calm
Data Reviewed
-
Total Time Spent with Patient (in minutes): 45
Labs: Labs Reviewed by me
[2023-04-30 12:09] VITALS: BP 128/96; PULSE 73; O2SAT 99
--- NOTE | 2023-04-30 13:06 | W.PN.UPDATE ---
Update Note
Progress Note Update
patient seen chart reviwewed. spoke with nursing and with cm. PT also informed me that patient had walked all around the unit today which is a + the patient still however seems preoccupied with a number of issues. she wants to leave the hospital
and go to another facility . no matter how many times it is explained to her that we are awaiting state approval it does not seem to sink in. she is also now preoccupied with whether she has insurance and cannot be reassured that it is not insurance
that is keeping her here. did not make any changes in her medications today. despite her preoccupations today she is less preoccupied and irritated than she was yesterday when i saw her so hopefully the increased risperdal may be starting to work.
she did receive two prns of ativan yesterday but none today. will continue to follow
[2023-04-30] MEDS: ATIVAN 0.5 MG PO (13:35)
[2023-04-30 15:48] VITALS: BP 162/97
[2023-04-30] MEDS: LOVENOX 40 MG SC (17:00)
[2023-04-30] MEDS: LOPRESSOR 100 MG PO (20:07)
[2023-04-30] MEDS: MELATONIN 5 MG PO (21:35)
[2023-04-30] MEDS: DEPAKOTE ER (24 HR RELEASE) 250 MG PO (21:36)
[2023-04-30] MEDS: DESYREL 50 MG PO (21:36)
[2023-04-30] MEDS: DEPAKOTE ER (24 HR RELEASE) 500 MG PO (21:38)
[2023-04-30 23:10] VITALS: BP 158/83
[2023-05-01] MEDS: ATIVAN 0.5 MG PO ×2 (03:03→15:36)
[2023-05-01] MEDS: SYNTHROID 50 MCG PO (06:04)
[2023-05-01] MEDS: NORVASC 10 MG PO (08:06)
[2023-05-01] MEDS: RISPERDAL M-TAB (ORALLY DISINTEGRATING) 1 MG PO (08:06)
[2023-05-01] MEDS: SENOKOT 8.59999999999999964 MG PO (08:06)
[2023-05-01] MEDS: MIRALAX 17 GRAMS PO (08:06)
[2023-05-01] MEDS: LOPRESSOR 100 MG PO (08:06)
[2023-05-01] MEDS: COZAAR 100 MG PO (08:06)
[2023-05-01] MEDS: ATIVAN 0.25 MG PO (08:07)
[2023-05-01] MEDS: PROTONIX 40 MG PO (08:08)
[2023-05-01] MEDS: LOTRIMIN 1% CREAM 1 APPLIC TOPICAL (08:08)
[2023-05-01] MEDS: DESENEX/MITRAZOL/ZEASORB 1 APPLIC TOPICAL (08:08)
[2023-05-01 08:37] VITALS: BP 148/77
--- NOTE | 2023-05-01 09:25 | CM ---
Addendum entered by EDUARDO Parrish 05/01/23 11:28:
Placed a call to patient's sister to update x2 however there was no answer and no voicemail to leave a message.
Addendum entered by EDUARDO Parrish 05/01/23 10:59:
Received voice mail back from Radha at the office on aging. Email was sent by Chika, containing the letter that clears patient to go to SNF.
Placed a call to [facility] and spoke with Agatha in admissions who confirmed that they have a bed for patient. # for report [phone] and fax# [phone]
Will complete medical necessity and transfer sheet.
Attending updated.
Faxed all paperwork from the [facility] to the SNF.
Original Note:
Placed a call to Chika at the office on aging to determine if there has been any movement on patient's case determination. Had to leave a voice mail message. Requested return call.
Plan: Case management will continue to follow and assist with discharge planning. Will await a return call from Chika to determine when patient can be transferred.
--- NOTE | 2023-05-01 11:41 | W.PN.UPDATE ---
Update Note
Progress Note Update
patient seen chart reviewed. spoke with nursing dr bunch and case t. patient is likely to be dc today to snf in [place]. the patient is anxious about it but emphasized to her that she is going to be closer to her sister and family and this
should be a very + for her. no changes made in her medications.
--- NOTE | 2023-05-01 12:25 | W.PN.HOSP.TC ---
Today's Communication/Plan
-
dc to SNF
Assessment / Plan
Assessment / Plan
Assessment:
Acute change in mental status
TME seems to resolve and back to baseline.
Hx of Schizophrenia
- EEG unremarkable. MRI brain not performed as pt unlikely to tolerate. Neurology signed off.
- on 04/29; psych started low dose Ativan for anxiety (previously was on Klonopin)
- continue Risperdal, Trazodone. Depakote
- CHEMICAL RESEARCH WORKER Wellbutrin/Benztropine now stopped.
- initially psych planned for IP Psych placement for Clozaril but patient refusing due to prior intolerance to it in the past.
- off 1:1. She denies suicidal thoughts.
taylor-sensitive E. Coli UTI
- completed 5 day Rocephin course
Fungal looking rash behind both ears
- continue Lotrimin
Essential HTN
- continue Norvasc/Losartan
- home beta-lisa dose was increased
- follow BPs
- prn Hydralazine
Hypothyroidism
- continue Levothyroxine
Constipation
- continue bowel regimen; s/p BM 04/24
DVT ppx: Lovenox
Code: Full
Dispo: Medically stable for disposition to SNF in [place] area closer to family per family preference. CM aware. Level 2 assessment per CM. Reviewed with CM at this time
More than 30 minutes spent in discharge including
Final examination of the patient
Summarizing hospital stay
Instructions for continuing care to all relevant caregivers
Preparation of discharge records, prescriptions, and referral forms
Total time spent (in minutes): 41
Anticipated Discharge: Today
Subjective/Interval History
-
Date of Service: May 01, 2023
no overnight events
Objective Data
-
Vital Signs:
Vital Signs
Temp Pulse Resp BP Pulse Ox
97.9 F 66 17 148/77 98
05/01/23 08:37 05/01/23 08:37 05/01/23 08:37 05/01/23 08:37 05/01/23 08:37
I&O
04/30/23 05/01/23 05/02/23
06:59 06:59 06:59
Intake Total 900 / 900 780 / 780
Balance 900 / 900 780 / 780
Physical Exam
-
General: No Apparent Distress
HEENT: Normocephalic and Atraumatic
Respiratory: Negative Wheezes or Rales
Cardiac: Regular Rhythm and S1/S2
GI: Soft
Genito-urinary: No Costovertebral Tender
Neuro: AO x 3
Hematologic / Lymphatic: No Lymphadenopathy
Psych: Calm
Data Reviewed
-
Total Time Spent with Patient (in minutes): 41
Labs: Labs Reviewed by me
--- NOTE | 2023-05-01 12:29 | W.DS.TRANS ---
DC Summary - Supply Controller
-
Discharge Instructions:
Discharge Diagnosis/Procedures Toxic metabolic encephalopathy suspect 2/2
urinary tract infection
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
Essential hypertension
Tardive Dyskinesia
Diet Other diet
Additional Diets Minced and moist diet with thin liquids
Activity As tolerated,With assistance
Driving Restrictions Not until seen by your Dr
Bathing Restrictions None
Instructions:
Stand-Alone Forms:
Changes to Home Medications: No
Discharge Medications:
DC Medications w/original date entered in [employer]
acetaminophen 325 mg tablet (Tylenol) 650 mg PO Q6HPRN PRN MILD PAIN 03/03/23
amlodipine 10 mg tablet (Norvasc) 10 mg PO DAILY Blood Pressure 03/03/23
atorvastatin 10 mg tablet (Lipitor) 10 mg PO DAILY High Cholesterol 03/03/23
bisacodyl 10 mg rectal suppository (Dulcolax (bisacodyl)) 10 mg [place] DAILYPRN PRN IF NO BM AFTR MOM 03/03/23
cholecalciferol (vitamin D3) 10 mcg (400 unit) tablet (Vitamin D3) 10 mcg PO DAILY Supplement 03/03/23
diclofenac sodium 1 % topical gel 0 g topical Q8HPRN PRN FRONT AND BACK OF SHOULDERS 03/03/23
folic acid 1 mg tablet 1 mg PO DAILY Supplement 03/03/23
furosemide 20 mg tablet 20 mg PO DAILYPRN PRN edema 03/03/23
levothyroxine 50 mcg tablet (Synthroid) 50 mcg PO DAILY@07 Thyroid 03/03/23
pantoprazole 40 mg tablet,delayed release 40 mg PO DAILY Gastrointestinal Issue 03/03/23
sennosides 8.6 mg-docusate sodium 50 mg tablet (Senna Plus) 2 tab-cap PO BID Constipation 03/03/23
sodium phosphates 19 gram-7 gram/118 mL enema (Fleet Enema) 118 ml [place] DAILYPRN PRN IF NO BM AFTR DULCOLAX 03/03/23
trazodone 50 mg tablet 50 mg PO HS Sleep 03/03/23
docusate sodium 100 mg capsule (Colace) 200 mg PO DAILY Constipation 04/11/23
hydrocortisone 1 % topical cream 1 applic topical BID behind right ear 04/11/23
losartan 100 mg tablet 100 mg PO DAILY Blood Clot Prevention/Tx 04/11/23
magnesium hydroxide 400 mg/5 mL oral suspension (Milk of Magnesia) 2,400 mg PO [id number] PRN if no bm by 3rd day 04/11/23
clotrimazole 1 % topical cream (Athlete's Foot (clotrimazole)) 1 applic topical BID #0 grams 04/22/23
divalproex 250 mg tablet,extended release 24 hr 250 mg PO HS #30 tabs 04/22/23
divalproex 500 mg tablet,extended release 24 hr 500 mg PO HS #30 tabs 04/22/23
metoprolol tartrate 100 mg tablet 100 mg PO BID #60 tabs 04/22/23
miconazole nitrate 2 % topical powder (Miconazorb AF) 1 applic topical BID #0 grams 04/22/23
polyethylene glycol 3350 17 gram oral powder packet (HealthyLax) 17 g PO DAILY #30 ea 04/22/23
lorazepam 0.5 mg tablet 0.25 mg PO BID #6 tabs 05/01/23
risperidone 1 mg disintegrating tablet 1 mg PO BID #60 tabs 05/01/23
Home Medication Changes
Pending Results: No
Total time spent discharging patient (in min): 41
[2023-05-01 15:18] VITALS: BP 144/69
[2023-05-01] MEDS: LOVENOX SC (18:21)
== END 2023-05-01 18:56 | DRG 689 ==
LOC: 3 WEST ACU 17:52
PROVIDERS: Emergency Medicine; Nurse Practitioner; Nurse Practitioner Family; Nurse Practitioner Gerontology; Psychiatry & Neurology Neurology; Psychiatry & Neurology Psychiatry; ADMITTING PHYSICIAN Internal Medicine; ATTENDING PHYSICIAN Internal Medicine; CONSULT PHYSICIAN Psychiatry & Neurology Neurology; CONSULT PHYSICIAN Psychiatry & Neurology Psychiatry; EMERGENCY PHYSICIAN Emergency Medicine
DX: N39.0 Urinary tract infection, site not specified (principal); G92.8 Other toxic encephalopathy; E03.9 Hypothyroidism, unspecified; E78.00 Pure hypercholesterolemia, unspecified; I10 Essential (primary) hypertension; R68.0 Hypothermia, not associated with low environmental temperature; K21.9 Gastro-esophageal reflux disease without esophagitis; R21 Rash and other nonspecific skin eruption; K59.00 Constipation, unspecified; F20.9 Schizophrenia, unspecified; W19.XXXA Unspecified fall, initial encounter; Y93.9 Activity, unspecified; B96.20 Unspecified Escherichia coli [E. coli] as the cause of diseases classified elsewhere; G24.01 Drug induced subacute dyskinesia; F41.9 Anxiety disorder, unspecified; T43.595A Adverse effect of other antipsychotics and neuroleptics, initial encounter; Y92.9 Unspecified place or not applicable; Z88.5 Allergy status to narcotic agent; Z88.1 Allergy status to other antibiotic agents; Z91.041 Radiographic dye allergy status; Z11.52 Encounter for screening for COVID-19; Z79.890 Hormone replacement therapy; Z75.1 Person awaiting admission to adequate facility elsewhere
CPT/HCPCS: 70450; 71045; 71046; 80048; 80053; 80164; 80306; 81003; 81015; 82140; 82550; 82607; 82746; 83605; 84443; 85025; 85027; 87040; 87070; 87077; 87086; 87186; 87502; 87811; 92526; 92610; 93005; 94640; 95816; 97116; 97163; 97167; 97530; 97535; 99285